=== PATIENT | female | born 1940 | race Caucasian/White ===

== ENCOUNTER → 2018-07-25 07:53 | Outpatient (CLI) | payer MEDICARE, OTHER, SELFPAY ==
--- NOTE | 2018-07-25 07:56 | BI_ITS ---
MAMMOGRAPHY - BILATERAL SCREENING REASON FOR EXAM: Female, 78 years old. Routine annual screening examination. PERTINENT HISTORY: Sister with breast cancer. TECHNIQUE: Digital bilateral breast kathy (3D mammographic acquisition) in the CC and MLO projections. 2-D mediolateral oblique (MLO) and craniocaudad (CC) views of both breasts were obtained. CAD: Full Field Digital Mammography with Computer Added Detection was performed. COMPARISON: Comparison is made with prior outside examination dated July 20, 2013. FINDINGS: Breast Composition: There are scattered areas of fibroglandular density. There are no dominant masses or suspicious calcifications. Stable bilateral benign-appearing axillary lymph nodes. No other significant abnormalities are identified. There has been no significant change since the prior study. BI/SCREENING MAMM (CAD), BILAT IMPRESSION: Stable bilateral screening mammogram. Yearly follow-up mammogram recommended. (A) ASSESSMENT CATEGORY: BIRADS Category 2: Benign. A letter regarding these results will be sent to the patient by the facility within 30 days. Approximately 10% of breast cancers are not detected by mammography. A normal mammogram should not delay biopsy of a clinically suspicious abnormality. [id number] Electronically Signed: Tyree Valenzuela MD at 8:52 EST , Service support ,
== END ==
PROVIDERS: Family Provider Family Medicine; PCP Family Medicine; Referring Provider Family Medicine; Visit Provider Family Medicine
DX: Z12.31 Encounter for screening mammogram for malignant neoplasm of breast (principal)
CPT/HCPCS: 77063; 77067

== ENCOUNTER → 2019-01-02 | Outpatient (CLI) | payer MEDICARE, OTHER, SELFPAY ==
[2017-05-04 11:01] VITALS: BMI 25.9
[2019-01-02 14:23] LABS: ALB/GLOB Ratio 1.1 RATIO (0.9-2.4); AST(SGOT) 11 U/L (15-37); Alanine Aminotransfer ALT/SGPT 15 U/L (13-56); Albumin, Serum 3.6 g/dL (3.2-5.0); Alkaline Phosphatase 69 U/L (45-117); Anion Gap 7 (5-15); BUN 14 mg/dL (7-18); BUN/Creat Ratio 19.1 RATIO (10-20); Calcium,Total 8.8 mg/dL (8.5-10.1); Chloride 103 mmol/L (98-107); Cholesterol 252 mg/dL (200); Creatinine, Serum 0.73 mg/dL (0.55-1.02); EST Glomerular Filtration Rate 81 mL/min (>60); Est Glom Filt Rate - Afr Amer 98 mL/min (>60); Globulin 3.2 g/dL (2.2-4.2); Glucose 98 mg/dL (74-106); High Density Lipoprotein 43 mg/dL; Potassium 4.4 mmol/L (3.5-5.1); Protein, Total 6.8 g/dL (6.4-8.2); Sodium Level 136 mmol/L (136-145); Thyroid Stim Hormone (TSH) 3.94 uIU/mL (0.358-3.74)
[2019-01-03 16:25] LABS: T4 Total, Thyroxin 9.7 ug/dL (4.8-13.9)
[2019-01-05 01:46] LABS: Vitamin D,25 Hydroxy 18.3 ng/mL (29.95-100.01)
== END | disposition home or self-care (01) ==
LOC: MFPLAB 11:42
PROVIDERS: Family Provider Family Medicine; PCP Family Medicine; Referring Provider Family Medicine; Visit Provider Family Medicine
DX: I10 Essential (primary) hypertension (principal); R89.9 Unspecified abnormal finding in specimens from other organs, systems and tissues
CPT/HCPCS: 36415; 80053; 82306; 82465; 83718; 84436; 84439; 84443

== ENCOUNTER 2019-12-28 08:00 | Outpatient (RCR) | payer MEDICARE, OTHER, SELFPAY ==
--- NOTE | 2019-11-09 11:52 | HP.OTEVAL_ITS ---
Patient's Visit Information RTEVER BOOTH is a 79 year old F, referred to Occupational Therapy by Dr. Jules Whatley MD, with a diagnosis of left MF mallet finger. Date of Evaluation: 11/09/19 Occupational Therapist: Amina Zelaya, JENNIFERR/Sade, CHT - Subjective This 79 year old female was seen in OT with dx of left MF mallet finger- pt in need of custom orthosis for pt to use for the next 6-8 weeks to ensure repiar. Pt states injury happened while cleaning her sink. pt states not much pain, but with big tin splint on has difficulty performing her ADLs and IADls. - Pain left MF 2 Pain Intensity Range: 0, 2 - Objective pt demo with left MF -20 lag no swelling noted - ROM PIP: left MF 0/85 DIP: left MF -20 - Strength Strength Comments: not tested at this time due to healing structure - Sensation Sensation Comments: tingling in MF due to past hx of left CTR - Quick DASH-Disab of Arm,Shoulder& Hand Quick DASH Score: 13.6350 - Goals Goal:100% adherence to protocol: Yes Comment: Mallet finger protocol Goal:ROM equal to unaffected hand: Yes Comment: initiate after 6 weeks of orthosis use Goal:Room Service Food Server/Pinch strength at least 75% of unaffected hand: Yes Comment: test at 8 weeks Goal:Full use of affected hand in daily activities including: Yes - Rehabilitation General Assessment: pt is currently one week from mallet finger injury. pt in need of custom orthosis for pt to use for the next 6-8 weeks to ensure repiar. currently pt limited with ADLs and IADls as she is unable to use her left grasp ind. PT would benefit from skilled OT services every other week for 8 weeks to ensure pt is progressing and tendon healing- Today therapist duane. custom mallet finger orthosis for left MF placing DIP in slight hyper extension- therapist ed. pt on use and care of orthosis- pt to return in 3 weeks for measurments but if orthosis would need adj. pt to return [facility]ZA for orthosis adj. to ensure use. pt demo understanding and agree to POC. Rehabilitation Potential: Good - Anticipated Interventions A/AAROM/PROM, Strengthening, Orthoses, Fine Motor Coord/Brendon, Education re Diagnosis - Visit Plan Frequency: Every Other Week Duration: 2 Months TEXT: Thank you for the opportunity to evaluate your patient. For Medicare and Medicare HMO plans, please review the plan of care and approve it. It will need to be FAXED BACK to us at [phone] for Medicare purposes. Please let me know if there are questions or concerns regarding this plan of care. Physician Signat ure: Date:
--- NOTE | 2020-02-22 09:16 | HP.OTDCSUM_ITS ---
It has been my pleasure to treat TREVER BOOTH under orders from Dr. Jules Whatley MD, for the diagnosis of left MF mallet finger for a total of 3 visit(s). Please see the following information for a summary of their discharge status. % Improvement: 80 Objective/Function: no ext. lag noted. pt demo 10* flex after AROM ex Patient Goals: Regain Mobility, Regain Strength, Use Hand/Wrist/Arm Normally Again, Be More Independent in ADLS Goal:100% adherence to protocol: Yes Goal:ROM equal to unaffected hand: Yes Goal:Traffic Division Commanding Officer/Pinch strength at least 75% of unaffected hand: Yes Goal:Full use of affected hand in daily activities including: Yes Plan: pt was seen 7 weeks from injury- therapist ed. pt on HEP of increasing her ROM . Pt was to return in 3 weeks. Pt has not scheduled apt. She was last seen on 12/28/19. pt d/c If there are questions or concerns regarding this patient's occupational therapy, please fell free to call me at [phone]. Thank you for the referral of this patient. Sincerely, Amina Zelaya, OTR/L, CHT
== END 2019-12-28 19:00 | disposition home or self-care (01) ==
LOC: OT 08:00
PROVIDERS: PCP Family Medicine; Referring Provider Orthopaedic Surgery; Visit Provider Orthopaedic Surgery
DX: M20.012 Mallet finger of left finger(s) (principal)
CPT/HCPCS: 97166; 97530; 97760

== ENCOUNTER 2020-07-05 13:17 | Outpatient (RCR) | payer MEDICARE, OTHER, SELFPAY ==
[2017-05-04 11:01] VITALS: BMI 25.9
== END 2020-07-05 23:59 ==
LOC: IMMUN 13:17
PROVIDERS: PCP Family Medicine; Visit Provider Family Medicine
DX: Z23 Encounter for immunization (principal)
CPT/HCPCS: 0011A; 0012A; 91301

== ENCOUNTER → 2020-12-16 08:52 | Outpatient (CLI) | payer MEDICARE, OTHER, SELFPAY ==
[2017-05-04 11:01] VITALS: BMI 25.9
[2020-12-16 10:50] LABS: ALB/GLOB Ratio 0.9 RATIO (0.9-2.4); AST(SGOT) 18 U/L (15-37); Alanine Aminotransfer ALT/SGPT 21 U/L (13-56); Albumin, Serum 3.7 g/dL (3.2-5.0); Alkaline Phosphatase 84 U/L (45-117); Anion Gap 7 (5-15); BUN 15 mg/dL (7-18); BUN/Creat Ratio 16.9 RATIO (10-20); Calcium,Total 8.9 mg/dL (8.5-10.1); Chloride 104 mmol/L (98-107); Cholesterol 282 mg/dL (200); Creatinine, Serum 0.89 mg/dL (0.55-1.02); EST Glomerular Filtration Rate 65 mL/min (>60); Est Glom Filt Rate - Afr Amer 78 mL/min (>60); Glucose 95 mg/dL (74-106); High Density Lipoprotein 50 mg/dL; Potassium 3.9 mmol/L (3.5-5.1); Protein, Total 7.7 g/dL (6.4-8.2); Sodium Level 137 mmol/L (136-145); Thyroid Stim Hormone (TSH) 6.26 uIU/mL (0.358-3.74); Triglycerides 129 mg/dL; Very Low Density Lipoprotein 26 mg/dL (5-40)
== END ==
PROVIDERS: PCP Family Medicine; Referring Provider Family Medicine; Visit Provider Family Medicine
DX: I10 Essential (primary) hypertension (principal)
CPT/HCPCS: 36415; 80053; 80061; 84443

== ENCOUNTER → 2020-12-24 08:26 | Outpatient (CLI) | payer MEDICARE, OTHER, SELFPAY ==
[2017-05-04 11:01] VITALS: BMI 25.9
[2020-12-24 10:24] LABS: T4 Free Direct 1.03 ng/dL (0.76-1.46)
== END ==
PROVIDERS: PCP Family Medicine; Visit Provider Family Medicine
DX: R79.89 Other specified abnormal findings of blood chemistry (principal); I10 Essential (primary) hypertension
CPT/HCPCS: 36415; 84439

== ENCOUNTER → 2021-01-24 08:58 | Outpatient (CLI) | payer MEDICARE, OTHER, SELFPAY ==
[2021-01-24 10:26] LABS: Microalbumin,Random Urine 5.2 mg/L (NO RANGE EST.)
[2021-01-24 10:38] LABS: T4 Free Direct 0.99 ng/dL (0.76-1.46); Thyroid Stim Hormone (TSH) 4.97 uIU/mL (0.358-3.74)
== END ==
PROVIDERS: PCP Family Medicine; Visit Provider Family Medicine
DX: I10 Essential (primary) hypertension (principal); R79.89 Other specified abnormal findings of blood chemistry
CPT/HCPCS: 36415; 82043; 82570; 84439; 84443

== ENCOUNTER → 2022-03-02 | Outpatient (CLI) | payer MEDICARE, OTHER, SELFPAY ==
--- NOTE | 2022-03-02 14:10 | RAD_ITS ---
EXAM: XR LEFT HUMERUS, 2 OR MORE VIEWS CLINICAL INDICATION: PAIN TECHNIQUE: Frontal and lateral views of the left humerus. This report was created using [employer] report generation technology. COMPARISON: None. FINDINGS: BONES/JOINTS: Osseous structures are mildly demineralized. Degenerative narrowing of the glenohumeral joint space. Superior subluxation of the humeral head which abuts the undersurface of the acromion indicating rotator cuff atrophy and/or tear. No acute fracture. No dislocation. No sclerotic or destructive changes observed. SOFT TISSUES: Unremarkable. No soft tissue swelling or gas. No radiopaque foreign body. OTHER: The visualized left ribs are intact. RAD/Humerus min 2 Views IMPRESSION: No acute findings in the left humerus. Degenerative narrowing of the left shoulder joint. Superior subluxation of the humeral head indicating rotator cuff atrophy and/or tear. Electronically Signed: Mervin Gonzalez MD at 5:10 EDT ,
== END | disposition home or self-care (01) ==
PROVIDERS: PCP Family Medicine; Referring Provider Family Medicine; Visit Provider Family Medicine
DX: M79.602 Pain in left arm (principal)
CPT/HCPCS: 73060

== ENCOUNTER → 2022-06-02 | Outpatient (CLI) | payer MEDICARE, OTHER, SELFPAY ==
--- NOTE | 2022-06-02 07:06 | CT_ITS ---
PROCEDURE: CT LEFT KNEE WITHOUT CONTRAST REASON FOR EXAM: Female, 82 years old. Preoperative planning for the MakoPlasty Robotic knee surgery. Knee pain. TECHNIQUE: Transaxial CT of the hip, knee and ankle were obtained. Coronal and sagittal reconstruction images of the knee were provided. Individualized dose optimization techniques were used for this CT. COMPARISON: None. FINDINGS: Standard protocol for the preoperative planning for the MakoPlasty robotic knee surgery was performed. There is moderate to marked osteoarthrosis of the knee and mild arthrosis of the. CT/Extremity Lower without Contra IMPRESSION: Preoperative MakoPlasty Robotic knee surgical CT evaluation with findings as described above. Electronically Signed: Baljit Giles, at 9:37 EST ,
[2022-06-02 13:39] LABS: Absolute Lymphocyte Count 2.48 X10^3/uL (0.83-4.51); Absolute Neutrophil Count 5.1 X10^3/uL (2.0-7.7); Basophil# 0.04 X10^3/uL; Basophil% 0.5 % (0-1); Eosinophil# 0.19 X10^3/uL; Eosinophils% 2.2 % (0-5); Hematocrit 39.1 % (37-47); Hemoglobin 12.4 g/dL (12.0-15.0); Lymphocyte # 2.48 X10^3/ul (0.83-4.51); Lymphocyte % 29.1 % (19-41); Mean Corp Hgb Conc 31.7 g/dL (32-36); Mean Corpuscular Hgb 29.4 pg (27.0-32.0); Mean Corpuscular Volume 92.7 fL (81-99); Mean Platelet Vol. 9.2 fl (6.2-12.0); Monocyte# 0.72 X10^3/uL; Monocyte% 8.5 % (0-10); NRBC Flagged by Analyzer 0 % (0-5); Neutrophil # 5.05 X10^3/uL (2.7-7.7); Neutrophil % 59.2 % (47-70); Platelet Count 306 K/mm3 (150-450); RBC Distribution Width CV 13.6 % (11.6-14.6); Red Blood Count 4.22 M/mm3 (4.2-5.4); White Blood Count 8.5 K/mm3 (4.4-11.0)
[2022-06-02 14:10] LABS: Albumin, Serum 3.7 g/dL (3.2-5.0); Anion Gap 7 (5-15); BUN 25 mg/dL (7-18); BUN/Creat Ratio 21.6 RATIO (10-20); Calcium,Total 9.1 mg/dL (8.5-10.1); Chloride 105 mmol/L (98-107); Creatinine, Serum 1.16 mg/dL (0.55-1.02); EST Glomerular Filtration Rate 47 mL/min (>60); Est Glom Filt Rate - Afr Amer 57 mL/min (>60); Glucose 99 mg/dL (74-106); Potassium 4.1 mmol/L (3.5-5.1); Sodium Level 139 mmol/L (136-145)
[2022-06-02 14:19] LABS: Hemoglobin A1c 5.5 % (3.8-5.6)
== END | disposition home or self-care (01) ==
PROVIDERS: PCP Family Medicine; Referring Provider Orthopaedic Surgery; Visit Provider Orthopaedic Surgery
DX: Z01.818 Encounter for other preprocedural examination (principal); M17.0 Bilateral primary osteoarthritis of knee; Z96.652 Presence of left artificial knee joint
CPT/HCPCS: 36415; 73700; 80048; 82040; 83036; 85025

== ENCOUNTER → 2022-06-15 | Outpatient (CLI) | payer MEDICARE, OTHER, SELFPAY ==
--- NOTE | 2022-06-15 12:12 | EKG12_ITS ---
Test Reason : PREOP Blood Pressure : / mmHG Vent. Rate : 077 BPM Atrial Rate : 077 BPM P-R Int : 212 ms QRS Dur : 072 ms QT Int : 374 ms P-R-T Axes : 063 -14 047 degrees QTc Int : 423 ms Sinus rhythm with 1st degree A-V block with Premature atrial complexes Otherwise normal ECG Confirmed by RODGER BRYANT, YANA ([id number]), rewrite editor TERRENCE AUSTIN ([id number]) on 06/15/2022 2:02:47 PM Referred By: ADRIANO Confirmed By:YANA SOARES MD
== END | disposition home or self-care (01) ==
LOC: PSN 12:11
PROVIDERS: PCP Family Medicine; Visit Provider Physician Assistant
DX: Z01.810 Encounter for preprocedural cardiovascular examination (principal)
CPT/HCPCS: 93005

== ENCOUNTER → 2022-06-17 | Outpatient (CLI) | payer MEDICARE, OTHER, SELFPAY ==
--- NOTE | 2022-06-17 08:30 | KNEE_PTH ---
PATIENT: TREVER BOOTH LOC: [facility] U#:[id number] AGE/SX: 82/F ROOM: RE06/17/[address]: Dr. Tyrone Souza DO : 1940 BED: DIS: 06/17/2022 SPEC #: [id number] RECD: 06/17/22 15:19 STATUS: NICOLAS RENurys #: [id number] KASH: 06/17/22 08:[address]: Tyrone Souza DEPT: SURGICAL PATHOLOGY RECD BY: Meg Salazar ENTERED: 06/18/22 09:59 SP TYPE: TOTAL KNEE OTHR DR: Dr. Anson Bautista MD [facility] Tissues: Knee, NOS Procedures: Decalcification bone/plaque Surgery Specimen Level IV HEADER OPERATION: Left total knee replacement with robotic assistance PRE-OP DIAGNOSIS: Primary osteoarthritis left knee TISSUE SUBMITTED: Left knee bone and tissue MICROSCOPIC DIAGNOSIS Bone and tissue, left knee, total knee replacement/resection: Pieces of bone with degenerative osteoarthritic changes. Fibroadipose tissue, fibroconnective tissue and reactive synovial tissue. Focal changes consistent with pseudogout. PENG:aleja 06/24/2022 MICROSCOPIC DESCRIPTION Slides are reviewed. GROSS DESCRIPTION Received is one container designated bone and soft tissue left knee. The specimen consists of multiple fragments of massey-yellow bone measuring in aggregate 10 x 8 x 3 cm. Also in the specimen container are multiple fragments of yellow-white soft tissue measuring in aggregate 6 x 6.5 x 2 cm. A number of bony fragments contain articular surfaces consistent with tibial plateau and femoral condyle and displaying prominent osteophyte formation, eburnation, and bone erosion. Culinary Specialist sections are submitted in two cassettes as follows: 1 - bone after decalcification, 2 - soft tissue. / PENG:aleja 06/18/2022 :[address] [facility]: [id number]
== END | disposition home or self-care (01) ==
LOC: LABSPEC 15:24
PROVIDERS: PCP Family Medicine; Referring Provider Orthopaedic Surgery; Visit Provider Orthopaedic Surgery
DX: M17.12 Unilateral primary osteoarthritis, left knee (principal)
CPT/HCPCS: 88305; 88311

== ENCOUNTER → 2022-10-27 | Outpatient (CLI) | payer MEDICARE, OTHER, SELFPAY ==
[2022-10-27 15:42] LABS: Vitamin B12 336 pg/mL (211-911)
[2022-10-27 16:02] LABS: ALB/GLOB Ratio 0.9 RATIO (0.9-2.4); AST(SGOT) 13 U/L (15-37); Alanine Aminotransfer ALT/SGPT 16 U/L (13-56); Albumin, Serum 3.4 g/dL (3.2-5.0); Alkaline Phosphatase 83 U/L (45-117); Anion Gap 6 (5-15); BUN 23 mg/dL (7-18); BUN/Creat Ratio 29.7 RATIO (10-20); Calcium,Total 9.1 mg/dL (8.5-10.1); Chloride 106 mmol/L (98-107); Creatinine, Serum 0.77 mg/dL (0.55-1.02); EST Glomerular Filtration Rate 76 mL/min (>60); Est Glom Filt Rate - Afr Amer 91 mL/min (>60); Globulin 3.8 g/dL (2.2-4.2); Glucose 97 mg/dL (74-106); Potassium 4.3 mmol/L (3.5-5.1); Protein, Total 7.2 g/dL (6.4-8.2); Sodium Level 137 mmol/L (136-145); Thyroid Stim Hormone (TSH) 3.48 uIU/mL (0.358-3.74)
== END | disposition home or self-care (01) ==
LOC: MFPLAB 12:24
PROVIDERS: PCP Family Medicine; Visit Provider Family Medicine
DX: R79.89 Other specified abnormal findings of blood chemistry (principal); I10 Essential (primary) hypertension; R53.83 Other fatigue
CPT/HCPCS: 36415; 80053; 82607; 82746; 84443

== ENCOUNTER → 2023-02-16 | Outpatient (CLI) | payer MEDICARE, OTHER, SELFPAY ==
--- NOTE | 2023-02-16 08:02 | BI_ITS ---
MAMMOGRAPHY - BILATERAL SCREENING REASON FOR EXAM: Female, 82 years old. Routine annual screening examination. PERTINENT HISTORY: Sister with breast cancer. TECHNIQUE: Digital bilateral breast rodriguez (3D mammographic acquisition) in the CC and MLO projections. 2-D mediolateral oblique (MLO) and craniocaudad (CC) views of both breasts were obtained. CAD: Full Field Digital Mammography with Computer Added Detection was performed. COMPARISON: Comparison is made with prior study dated July 25, 2018. FINDINGS: Breast Composition: There are scattered areas of fibroglandular density. Focal area of architectural distortion is seen in the upper deep slightly lateral aspect of the left breast. The patient will be recalled for additional views including compression spot views and 90 degree lateral view. No other significant abnormalities are identified. BI/SCRN MAMM (CAD)W/RODRIGUEZ BILAT IMPRESSION: Focal area of architectural distortion is seen in the upper deep slightly lateral aspect of the left breast as described. The patient will be recalled for additional views including 90 degree lateral and compression spot views. ASSESSMENT CATEGORY: BIRADS Category 0: Incomplete. Need additional imaging evaluation. A letter regarding these results will be sent to the patient by the facility within 30 days. Approximately 10% of breast cancers are not detected by mammography. A normal mammogram should not delay biopsy of a clinically suspicious abnormality. [id number] Electronically Signed: Tyree Valenzuela MD at 8:54 EDT ,
== END | disposition home or self-care (01) ==
LOC: OPBI 08:00
PROVIDERS: PCP Family Medicine; Referring Provider Family Medicine; Visit Provider Family Medicine
DX: Z12.31 Encounter for screening mammogram for malignant neoplasm of breast (principal)
CPT/HCPCS: 77063; 77067

== ENCOUNTER → 2023-02-17 | Outpatient (CLI) | payer MEDICARE, OTHER, SELFPAY ==
--- NOTE | 2023-02-17 09:05 | US_ITS ---
STUDY: ULTRASOUND BREAST - LEFT REASON FOR EXAM: Female, 82 years old. Abnormal mammogram. TECHNIQUE: Axial and longitudinal images of the LEFT breast were performed with a high resolution ultrasound transducer. # OF IMAGES: 39 COMPARISON: Comparison is made with prior mammogram dated February 16, 2023 and February 17, 2023. FINDINGS: LEFT Breast: At the 12:00 position of the breast at 3 cm from nipple, there is a 9 mm x 9 mm x 4 mm ill-defined subtle architectural distortion corresponded to the mammographic findings. Biopsy recommended. US/Breast Limited Unilateral IMPRESSION: Subtle 9 mm x 9 mm x 4 mm ill-defined architectural distortion at the 12:00 position of the breast at 3 cm from the nipple. Biopsy recommended. ASSESSMENT CATEGORY: BIRADS Category 4: Suspicious - Biopsy Should Be Considered. A letter regarding these results will be sent to the patient by the facility within 30 days. Electronically Signed: Tyree Valenzuela MD at 10:43 EDT ,
--- NOTE | 2023-02-17 09:05 | BI_ITS ---
MAMMOGRAPHY - UNILATERAL DIAGNOSTIC: LEFT BREAST REASON FOR EXAM: Female, 82 years old. Abnormal screening mammogram. PERTINENT HISTORY: Sister with breast cancer. TECHNIQUE: Compression spot views of the left breast in the mediolateral oblique and craniocaudad projections as well as 90 degree lateral view were obtained. CAD: Full Field Digital Mammography with Computer Added Detection was performed. COMPARISON: Comparison is made with prior study February 16, 2023. FINDINGS: Breast Composition: There are scattered areas of fibroglandular density. Persistent focal architectural distortion in the upper lateral aspect of the left breast. Correlation with ultrasound is recommended. No other significant abnormalities are identified. BI/DIAG MAMM W/CAD, UNILAT IMPRESSION: Persistent focal architectural distortion in the upper outer aspect of the left breast as described. Correlation with ultrasound is recommended. ASSESSMENT CATEGORY: BIRADS Category 0: Incomplete. Need additional imaging evaluation. A letter regarding these results will be sent to the patient by the facility within 30 days. Approximately 10% of breast cancers are not detected by mammography. A normal mammogram should not delay biopsy of a clinically suspicious abnormality. Electronically Signed: Tyree Valenzuela MD at 10:14 EDT ,
== END | disposition home or self-care (01) ==
LOC: OPBI 09:04
PROVIDERS: PCP Family Medicine; Referring Provider Family Medicine; Visit Provider Family Medicine
DX: R92.8 Other abnormal and inconclusive findings on diagnostic imaging of breast (principal)
CPT/HCPCS: 76642; 77065

== ENCOUNTER → 2023-03-11 | Outpatient (CLI) | payer MEDICARE, OTHER, SELFPAY ==
--- NOTE | 2023-03-11 09:40 | HP.PCM_ITS ---
History and Physical Date of Admission: 03/11/23 Visit Reasons: LEFT BREAST BIRADS 4 Chief Complaint: left breast nodule Substance Abuse Services Director Required: No Is patient in pain?: No Allergies Sulfa (Sulfonamide Antibiotics) Allergy (Verified 03/08/23 12:11) Rashmorphine Adverse Reaction (Verified 03/08/23 12:11) MydjdBenjklf-SQR-GxY Reductase Inhibitor [Lwwsprx-Liu-Era Reductase Inhibitor] Adverse Reaction (Verified 03/08/23 12:11) Pain in joints Medications lisinopril 10 mg tablet 20 mg PO DAILY 02/29/16 [History Confirmed 03/08/23] cholecalciferol (vitamin D3) 25 mcg (1,000 unit) tablet (Vitamin D3) 2,000 unit PO DAILY 05/07/16 [History Confirmed 03/08/23] orphenadrine citrate 100 mg tablet,extended release 100 mg PO BID PRN Muscle Spasm #14 TABLETS 05/04/17 [Rx Confirmed 03/08/23] metoprolol tartrate 50 mg tablet 50 mg PO BID #180 tabs 06/21/17 [Rx Confirmed 03/08/23] [facility] Medical History (Updated 03/08/23 @ 12:[address] Tima Oviedo MD) Abnormal ECG Abnormal mammogram of left breast Acute electrocardiogram changes HLD (hyperlipidemia) Murmur, cardiac Palpitations Tachycardia Uncontrolled hypertension Surgical History (Updated 03/08/23 @ 12:10 by Steffi Mancuso) S/P carpal tunnel release S/P cataract extraction S/P left knee surgery Family History (Updated 03/08/23 @ 12:11 by Steffi Mancuso) Sister Breast cancerMother Heart disease Social History (Updated 03/08/23 @ 12:11 by Steffi Mancuso) Smoking Status: Never smoker alcohol intake: never HPI HPI HPI: 82-year-old female is being referred by Dr. Anson Bautista for surgical consultation regarding abnormal mammographic and breast ultrasound imaging. A written copy of my surgical consult recommendations will return to him. As noted below on February 16, 2023 the patient had bilateral screening mammography and then on February 17, 2023 she had diagnostic left breast mammogram and ultrasonography. I have personally reviewed these images. On mammogram there is felt to be a focal architectural distortion in the upper outer aspect of the left breast however this area is rather diffuse. Ultrasound suggests that a much smaller 9 x 9 x 4 mm ill-defined area. This is extraordinarily vague and does not seem to correlate well with the diffuse area on mammogram to my review. 82-year-old female. G5, . Menarche at age 14. First child born when she was 18. She did not breast-feed. No history of any previous breast biopsies. She was briefly on estrogen replacement therapy remotely but that was only for approximately 1 year. Family history is notable for a sister who had breast cancer at approximately age 77 or 78 but she had been on chronic OCPs. The patient denies any nipple discharge. She has had chronic lifelong breast tenderness. She herself cannot detect any focal changes in her own self breast exam February 16, 2023 MAMMOGRAPHY - BILATERAL SCREENING REASON FOR EXAM: Female, 82 years old. Routine annual screening examination. PERTINENT HISTORY: Sister with breast cancer. TECHNIQUE: Digital bilateral breast rodriguez (3D mammographic acquisition) in the CC and MLO projections. 2-D mediolateral oblique (MLO) and craniocaudad (CC) views of both breasts were obtained. CAD: Full Field Digital Mammography with Computer Added Detection was performed. COMPARISON: Comparison is made with prior study dated July 25, 2018. FINDINGS: Breast Composition: There are scattered areas of fibroglandular density. Focal area of architectural distortion is seen in the upper deep slightly lateral aspect of the left breast. The patient will be recalled for additional views including compression spot views and 90 degree lateral view. No other significant abnormalities are identified. BI/SCRN MAMM (CAD)W/RODRIGUEZ BILAT IMPRESSION: Focal area of architectural distortion is seen in the upper deep slightly lateral aspect of the left breast as described. The patient will be recalled for additional views including 90 degree lateral and compression spot views. ASSESSMENT CATEGORY: BIRADS Category 0: Incomplete. Need additional imaging evaluation. A letter regarding these results will be sent to the patient by the facility within 30 days. Approximately 10% of breast cancers are not detected by mammography. A normal mammogram should not delay biopsy of a clinically suspicious abnormality. [id number] Electronically Signed: Tyree Valenzuela MD at 8:54 EDT , February 17, 2023 MAMMOGRAPHY - UNILATERAL DIAGNOSTIC: LEFT BREAST REASON FOR EXAM: Female, 82 years old. Abnormal screening mammogram. PERTINENT HISTORY: Sister with breast cancer. TECHNIQUE: Compression spot views of the left breast in the mediolateral oblique and craniocaudad projections as well as 90 degree lateral view were obtained. CAD: Full Field Digital Mammography with Computer Added Detection was performed. COMPARISON: Comparison is made with prior study February 16, 2023. FINDINGS: Breast Composition: There are scattered areas of fibroglandular density. Persistent focal architectural distortion in the upper lateral aspect of the left breast. Correlation with ultrasound is recommended. No other significant abnormalities are identified. BI/DIAG MAMM W/CAD, UNILAT IMPRESSION: Persistent focal architectural distortion in the upper outer aspect of the left breast as described. Correlation with ultrasound is recommended. ASSESSMENT CATEGORY: BIRADS Category 0: Incomplete. Need additional imaging evaluation. A letter regarding these results will be sent to the patient by the facility within 30 days. Approximately 10% of breast cancers are not detected by mammography. A normal mammogram should not delay biopsy of a clinically suspicious abnormality. Electronically Signed: Tyree Valenzuela MD at 10:14 EDT , February 17, 2023 STUDY: ULTRASOUND BREAST - LEFT REASON FOR EXAM: Female, 82 years old. Abnormal mammogram. TECHNIQUE: Axial and longitudinal images of the LEFT breast were performed with a high resolution ultrasound transducer. # OF IMAGES: 39 COMPARISON: Comparison is made with prior mammogram dated February 16, 2023 and February 17, 2023. FINDINGS: LEFT Breast: At the 12:00 position of the breast at 3 cm from nipple, there is a 9 mm x 9 mm x 4 mm ill-defined subtle architectural distortion corresponded to the mammographic findings. Biopsy recommended. US/Breast Limited Unilateral IMPRESSION: Subtle 9 mm x 9 mm x 4 mm ill-defined architectural distortion at the 12:00 position of the breast at 3 cm from the nipple. Biopsy recommended. ASSESSMENT CATEGORY: BIRADS Category 4: Suspicious - Biopsy Should Be Considered. A letter regarding these results will be sent to the patient by the facility within 30 days. Electronically Signed: Tyree Valenzuela MD at 10:43 EDT , ROS General General: Yes fatigue; No weight change, appetite, colon cancer, breast cancer or weakness HEENT HEENT: No difficulty swallowing, eye injury, eye surgery, swollen glands or hoarseness Endo Endocrine: No thyroid disease, diabetes mellitus, thyroid cancer, Hair loss, heat intolerance or cold intolerance Skin Skin: No rash or changing moles Breast Breast: No left breast lump, right breast lump, nipple discharge, breast pain, abnormal mammogram, abnormal US or breast enlargement Musc Musculoskeletal: Yes arthritis; No back problems, rheumatoid arthritis, gout or joint pain Cardio Cardiovascular: Yes high blood pressure; No murmur, pacemaker, heart disease, atrial fibrillation, heart attack, heart stent, palpitations, shortness of breat with exertion or chest pain Psych Psychiatric: Yes anxiety; No depression or hearing voices Resp Respiratory: No shortness of breath, No sleep apnea, No cough, No COPD, No asthma, No emphysema and No wheezing Gastro Gastrointestinal: No abdominal pain, No nausea or vomiting, No diarrhea, Yes constipation, No blood in stool, No acid reflux, No hemorrhoids, No ulcers, No gallbladder problem and No black,tarry stools Vinicio Hematologic: No blood thinners, No blood disorders, No bleeding, No anemia and No blood clots Neuro Neurologic: No system reviewed and no additional complaints, except as documente d, No as per HPI, No abnormal gait, No abnormal hearing, No abnormal movements, No abnormal speech, No behavioral changes, No burning sensations, No confusion, No convulsions, No disequilibrium, No dizziness, No localized weakness, No frequent falls, No headache(s), No lack of coordination, No loss of vision, No memory loss, No numbness, No other visual disturbances, No radicular pain, No restless legs, No sensory deficit, No syncope, No tingling, No tremor(s), No weakness and No other Exam Const General: cooperative, healthy appearing, comfortable and no acute distress Nutritional Appearance: average body habitus Orientation: alert, awake and oriented x3 HENMT Head: normal to inspection Eyes General: appearance normal, both eyes and all related structures Neck Neck: normal visual inspection Chest Other: Right breast: No focal mass. No nipple discharge. No axillary or clavicular adenopathy, mild diffuse tenderness to even light palpation Left breast: No focal mass. No nipple discharge. No axillary or clavicular adenopathy, mild diffuse tenderness to light palpation Resp Effort & Inspection: normal respiratory effort Auscultation: clear to auscultation bilaterally Assessment and Plan Assessment and Plan (1) Abnormal mammogram of left breast: Status: Acute Plan: As noted above I do not believe that the streaky area of abnormality on mammogram correlates with the very nondescript at 9 mm area felt to be possibly identified on ultrasound. I believe that the ultrasound finding is quite vague at best. I propose for her stereotactic needle core biopsy left breast upper outer quadrant. I described the technique, benefit, risk, alternatives. She has had an opportunity to ask and have questions answered. We will proceed as noted. I appreciate the opportunity of assisting with her surgical care. Copy: Dr. Anson Oviedo M.D., F.A.C.S. I have examined the patient and the H&P has been reviewed. There are no clinical changes since date of exam. Tima Oviedo M.D., F.A.C.S.
--- NOTE | 2023-03-11 10:26 | OP.PCM_ITS ---
Report of Operation Date of Procedure: 03/11/23 Pre-Operative Diagnosis: Abnormal left mammogram Post-Operative Diagnosis: Abnormal left mammogram with streaky density upper slightly outer left breast Surgery/Procedure Performed:: Stereotactic needle core left breast biopsy Description of Surgical Findings:: Timeout informed consent was obtained. 82-year-old female was taken to the stereotactic unit. She was placed prone on the table in a cc view. The transversely positioned and streaky type irregularity was identified. Stereotactic images were obtained. Ward target on host/hostess restaurant was used to replace image 2. The left breast was sterilely prepped and draped. 1% lidocaine was used as local anesthetic. 15 cc was used. A small stab incision was created 8 gauge mammotome needle was advanced to depth core biopsies were obtained a total of 10. There was some oozing with that sampling. A mini marking clip was left at 12 o'clock position. She was released from the device pressure was held for hemostasis which appeared to be intact. Steri-Strip Telfa OpSite dressing applied. The specimens were immediately transferred to formalin for analysis. She was tender at the initiation of the procedure and did require reassuring th roughout the procedure however I felt she did well. Specimens cores x10. Drains none. Blood loss 10 cc. She will be notified of final pathology as it becomes available. Tima Oviedo M.D., F.A.C.S. Surgeon: Tima Oviedo Type of Anesthesia: Local
--- NOTE | 2023-03-11 10:30 | BRBX_PTH ---
PATIENT: TREVER BOOTH LOC: [facility] U#:[id number] AGE/SX: 82/F ROOM: RE03/11/[address]: Dr. Tima Oviedo MD : 1940 BED: DIS: 03/11/2023 SPEC #: [id number] RECD: 03/11/23 11:15 STATUS: NICOLAS RENurys #: [id number] KASH: 03/11/23 10:[address]: Tima Oviedo DEPT: SURGICAL PATHOLOGY RECD BY: Breanna Hensley ENTERED: 03/11/23 15:08 SP TYPE: BREAST BX OTHR DR: Dr. Anson Bautista MD Tissues: Right breast, NOS Procedures: Surgery Specimen Level IV HEADER OPERATION: Left stereotactic breast biopsy PRE-OP DIAGNOSIS: Left upper outer quadrant architectural distortion TISSUE SUBMITTED: Left breast core tissue ISCHEMIC TIME: 1 minute FIXATION TIME: 9 hours MICROSCOPIC DIAGNOSIS Left breast, stereotactic core biopsy: Mature adipose tissue and blood. No evidence of malignancy. See comment. AM:aleja 03/12/2023 COMMENT Ductal epithelium is not represented in the biopsy. Clinical correlation is suggested. MICROSCOPIC DESCRIPTION Slides are reviewed. GROSS DESCRIPTION Received in fixative is one container labeled with the patient's name and designated left breast. The specimen consists of multiple elongated fragments of massey-yellow fibroadipose tissue mixed with blood clot that in aggregate measure 7.5 x 3.0 x 0.3 cm. The entire specimen is submitted in three cassettes. / SJ:aleja 03/11/2023 TC:5 CPT: 95211
== END | disposition home or self-care (01) ==
LOC: BIRAD 09:17
PROVIDERS: PCP Family Medicine; Referring Provider Surgery; Visit Provider Surgery
DX: R92.8 Other abnormal and inconclusive findings on diagnostic imaging of breast (principal); I10 Essential (primary) hypertension; Z79.899 Other long term (current) drug therapy
CPT/HCPCS: 19081; 88305; J7050

== ENCOUNTER → 2023-03-25 | Outpatient (CLI) | payer MEDICARE, OTHER, SELFPAY ==
--- NOTE | 2023-03-25 | IMM_PTH ---
PATIENT: TREVER BOOTH LOC: [facility] U#:[id number] AGE/SX: 82/F ROOM: RE03/25/[address]: Dr. Tima Oviedo MD : 1940 BED: DIS: 03/25/2023 SPEC #: [id number] RECD: 03/26/23 14:40 STATUS: NICOLAS REQ #: [id number] KASH: 03/25/23 00:[address]: Tima Oviedo DEPT: IMMUNOHISTOCHEMISTRY RECD BY: Breanna Hensley ENTERED: 03/26/23 14:41 SP TYPE: IMMUNO OTHR DR: Dr. Anson Bautista MD Tissues: Left breast, NOS Procedures: CALPONIN-1 (add) CK5-6 (add) CK8 (add) E-CAD (add) HER2 SANJIV (add) KI-67 (add) P53 (add) MI (add) IN SITU HYBRIDIZATION P40 (add) ER (initial) PHYSICIAN & [address] [address] SPECIMEN INFORMATION: Tissue Source: Left breast Clinical Info: Left upper outer quadrant breast distortion Specimen Number: [id number] #2 CPT code: 62560, 56875 x6, 73403 x3, 17965 x2 METHODOLOGY: Deparaffinized sections of prefer/formalin-fixed tissue or PAP/DQ stained slides are incubated with monoclonal/polyclonal antibodies/oligonucleotide probes. Localization is made via biotin free immunoperoxidase method. Appropriate controls are performed and reacted as expected. Results on target cell population are indicated in the following table: RESULTS: ANTIBODY / CLONE RESULT Block 2 E-Cad (ECH-6) negative CK8 (35ccmiV70) positive Calponin-1 (GA709W) negative CK5-6 (D5 & 1684) negative P40 (BC28) negative P53 (DO-7) negative (null pattern) Ki-67 (30-9) positive, low (~2%) MORPHOMETRIC ANALYSIS ER (clone 6F11) >95%, strong intensity MI (clone 16/1E2) >95%, moderate intensity Her-2Neu (clone CB11) 1-2+ The prognostic test for HER2 is performed on formalin-fixed paraffin embedded tissue. A 3+ (positive) staining pattern is defined as intense, homogeneous, complete, circumferential membranous staining in >10% of contiguous tumor cells. A similar weak (2+) staining pattern is interpreted as equivocal. SERVANDO follow-up testing is recommended for all equivocal cases. Positivity/negativity for ER/MI is reported if > or < 1% of the tumor cells are immuno- reactive, respectively. The ASCO/CAP criteria is used for scoring. Reference: Journal of Clinical Oncology, 2013; 31:7519-9851 & 2010; 16:1234-0135. Ischemic time: Less than one hour. Duration of fixation: 8.5 Hrs; Sample Adequate: Yes. These assays have not been validated on decalcified tissues. Results should be interpreted with caution given the likelihood of false negativity on decalcified specimens or fixation greater than 72 hours. Alternative testing methods (FISH/dualISH for Her2; gene expression for ER) are recommended, if applicable. Please notify the laboratory if additional testing is required. These tests were developed and their performance characteristics determined by [facility]. They may not have been cleared or approved by the U.S. Food and Drug Administration. The FDA has determined that such clearance or approval is not necessary. The above immunohistochemical/dualISH markers are ordered and reviewed by the Pathologist. INTERPRETATION: Left breast, stereotactic core biopsy: Invasive lobular carcinoma. Positive for estrogen receptors (favorable prognostic indicator). Positive for progesterone receptors (favorable prognostic indicator). Equivocal for overexpression of GCF8bkj. SJ:rg 03/29/2023 ADDENDUM ADDENDUM ADDENDUM ADDENDUM ADDENDUM ADDENDUM ADDENDUM ADDENDUM ADDENDUM ADDENDUM ADDENDUM ADDENDUM ADDENDUM ADDENDUM ADDENDUM ADDENDUM ADDENDUM ADDENDUM ADDENDUM ADDENDUM ADDENDUM ADDENDUM 03/30/2023 11:54 ADDENDUM 03/30/2023 11:54 ADDENDUM 03/30/2023 11:54 ADDENDUM 03/30/2023 11:54 ADDENDUM 03/30/2023 11:54 IN SITU HYBRIDIZATION (SERVANDO) FOR HER2 Interpretation: Negative / Not Amplified HER2 : CEP-17 Ratio: 0.88 Average HER2 Signal: 1.55 Average CEP-17 Signal: 1.75 Number of Tumor Cells Scanned: 50 Interpretative Information: The INFORM HER2 Dual SERVANDO DNA Probe Cocktail assay is performed on formalin-fixed paraffin embedded tissue and determines HER2 gene status by detecting HER2 copies via silver in situ hybridization (SISH) and Chromosome 17 copies via chromogenic red in situ hybridization on tumor cells. A minimum of 20 cells representing > 10% of contiguous and homogeneous invasive tumor cells were analyzed. HER2 gene status is classified as Non-amplified (HER2/Chr17 ratio < 2.0) or Amplified (HER2/Chr17 ratio greater than or equal to 2.0). If the resulting HER2/Chr17 ratio falls within 1.8 - 2.2 (Borderline), retesting by FISH is recommended. Reference: Char AC, Herberth PATEL, Bishnu DG, et al: Recommendations for Human Epidermal Growth Factor Receptor 2 Testing in Breast Cancer: [place] [employer] Clinical On[employer] / College of [place] [employer] Clinical Practice Guideline Update. J Clin Oncol 31:6161-3374, 2013. SJ:aleja 03/30/2023
--- NOTE | 2023-03-25 10:34 | PCM.HP.BLA ---
History and Physical Date of Admission: 03/25/23 On March 11, 2023 I performed a stereotactic needle core breast biopsy of the left breast. Final pathology was benign but did not demonstrate breast tissue. After discussion with the patient she returns today for repeat attempt in hopes of obtaining breast tissue. My previous notes reflect the following Visit Reasons: LEFT BREAST BIRADS 4 Chief Complaint: left breast nodule Arranging Funeral Director Required: No Is patient in pain?: No Allergies Sulfa (Sulfonamide Antibiotics) Allergy (Verified 03/08/23 12:11) Rashmorphine Adverse Reaction (Verified 03/08/23 12:11) CtictHvunfqx-QIK-LkY Reductase Inhibitor [Fntozrr-Dzx-Tpl Reductase Inhibitor] Adverse Reaction (Verified 03/08/23 12:11) Pain in joints Medications lisinopril 10 mg tablet 20 mg PO DAILY 02/29/16 [History Confirmed 03/08/23] cholecalciferol (vitamin D3) 25 mcg (1,000 unit) tablet (Vitamin D3) 2,000 unit PO DAILY 05/07/16 [History Confirmed 03/08/23] orphenadrine citrate 100 mg tablet,extended release 100 mg PO BID PRN Muscle Spasm #14 TABLETS 05/04/17 [Rx Confirmed 03/08/23] metoprolol tartrate 50 mg tablet 50 mg PO BID #180 tabs 06/21/17 [Rx Confirmed 03/08/23] [facility] Medical History (Updated 03/08/23 @ 12:[address] Tima Oviedo MD) Abnormal ECG Abnormal mammogram of left breast Acute electrocardiogram changes HLD (hyperlipidemia) Murmur, cardiac Palpitations Tachycardia Uncontrolled hypertension Surgical History (Updated 03/08/23 @ 12:10 by Steffi Mancuso) S/P carpal tunnel release S/P cataract extraction S/P left knee surgery Family History (Updated 03/08/23 @ 12:11 by Steffi Mancuso) Sister Breast cancerMother Heart disease Social History (Updated 03/08/23 @ 12:11 by Steffi Mancuso) Smoking Status: Never smoker alcohol intake: never HPI HPI HPI: 82-year-old female is being referred by Dr. Anson Bautista for surgical consultation regarding abnormal mammographic and breast ultrasound imaging. A written copy of my surgical consult recommendations will return to him. As noted below on February 16, 2023 the patient had bilateral screening mammography and then on February 17, 2023 she had diagnostic left breast mammogram and ultrasonography. I have personally reviewed these images. On mammogram there is felt to be a focal architectural distortion in the upper outer aspect of the left breast however this area is rather diffuse. Ultrasound suggests that a much smaller 9 x 9 x 4 mm ill-defined area. This is extraordinarily vague and does not seem to correlate well with the diffuse area on mammogram to my review. 82-year-old female. G5, . Menarche at age 14. First child born when she was 18. She did not breast-feed. No history of any previous breast biopsies. She was briefly on estrogen replacement therapy remotely but that was only for approximately 1 year. Family history is notable for a sister who had breast cancer at approximately age 77 or 78 but she had been on chronic OCPs. The patient denies any nipple discharge. She has had chronic lifelong breast tenderness. She herself cannot detect any focal changes in her own self breast exam February 16, 2023 MAMMOGRAPHY - BILATERAL SCREENING REASON FOR EXAM: Female, 82 years old. Routine annual screening examination. PERTINENT HISTORY: Sister with breast cancer. TECHNIQUE: Digital bilateral breast rodrigeuz (3D mammographic acquisition) in the CC and MLO projections. 2-D mediolateral oblique (MLO) and craniocaudad (CC) views of both breasts were obtained. CAD: Full Field Digital Mammography with Computer Added Detection was performed. COMPARISON: Comparison is made with prior study dated July 25, 2018. FINDINGS: Breast Composition: There are scattered areas of fibroglandular density. Focal area of architectural distortion is seen in the upper deep slightly lateral aspect of the left breast. The patient will be recalled for additional views including compression spot views and 90 degree lateral view. No other significant abnormalities are identified. BI/SCRN MAMM (CAD)W/RODRIGUEZ BILAT IMPRESSION: Focal area of architectural distortion is seen in the upper deep slightly lateral aspect of the left breast as described. The patient will be recalled for additional views including 90 degree lateral and compression spot views. ASSESSMENT CATEGORY: BIRADS Category 0: Incomplete. Need additional imaging evaluation. A letter regarding these results will be sent to the patient by the facility within 30 days. Approximately 10% of breast cancers are not detected by mammography. A normal mammogram should not delay biopsy of a clinically suspicious abnormality. [id number] Electronically Signed: Tyree Valenzuela MD at 8:54 EDT , February 17, 2023 MAMMOGRAPHY - UNILATERAL DIAGNOSTIC: LEFT BREAST REASON FOR EXAM: Female, 82 years old. Abnormal screening mammogram. PERTINENT HISTORY: Sister with breast cancer. TECHNIQUE: Compression spot views of the left breast in the mediolateral oblique and craniocaudad projections as well as 90 degree lateral view were obtained. CAD: Full Field Digital Mammography with Computer Added Detection was performed. COMPARISON: Comparison is made with prior study February 16, 2023. FINDINGS: Breast Composition: There are scattered areas of fibroglandular density. Persistent focal architectural distortion in the upper lateral aspect of the left breast. Correlation with ultrasound is recommended. No other significant abnormalities are identified. BI/DIAG MAMM W/CAD, UNILAT IMPRESSION: Persistent focal architectural distortion in the upper outer aspect of the left breast as described. Correlation with ultrasound is recommended. ASSESSMENT CATEGORY: BIRADS Category 0: Incomplete. Need additional imaging evaluation. A letter regarding these results will be sent to the patient by the facility within 30 days. Approximately 10% of breast cancers are not detected by mammography. A normal mammogram should not delay biopsy of a clinically suspicious abnormality. Electronically Signed: Tyree Valenzuela MD at 10:14 EDT , February 17, 2023 STUDY: ULTRASOUND BREAST - LEFT REASON FOR EXAM: Female, 82 years old. Abnormal mammogram. TECHNIQUE: Axial and longitudinal images of the LEFT breast were performed with a high resolution ultrasound transducer. # OF IMAGES: 39 COMPARISON: Comparison is made with prior mammogram dated February 16, 2023 and February 17, 2023. FINDINGS: LEFT Breast: At the 12:00 position of the breast at 3 cm from nipple, there is a 9 mm x 9 mm x 4 mm ill-defined subtle architectural distortion corresponded to the mammographic findings. Biopsy recommended. US/Breast Limited Unilateral IMPRESSION: Subtle 9 mm x 9 mm x 4 mm ill-defined architectural distortion at the 12:00 position of the breast at 3 cm from the nipple. Biopsy recommended. ASSESSMENT CATEGORY: BIRADS Category 4: Suspicious - Biopsy Should Be Considered. A letter regarding these results will be sent to the patient by the facility within 30 days. Electronically Signed: Tyree Valenzuela MD at 10:43 EDT , ROS General General: Yes fatigue; No weight change, appetite, colon cancer, breast cancer or weakness HEENT HEENT: No difficulty swallowing, eye injury, eye surgery, swollen glands or hoarseness Endo Endocrine: No thyroid disease, diabetes mellitus, thyroid cancer, Hair loss, heat intolerance or cold intolerance Skin Skin: No rash or changing moles Breast Breast: No left breast lump, right breast lump, nipple discharge, breast pain, abnormal mammogram, abnormal US or breast enlargement Musc Musculoskeletal: Yes arthritis; No back problems, rheumatoid arthritis, gout or joint pain Cardio Cardiovascular: Yes high blood pressure; No murmur, pacemaker, heart disease, atrial fibrillation, heart attack, heart stent, palpitations, shortness of breat with exertion or chest pain Psych Psychiatric: Yes anxiety; No depression or hearing voices Resp Respiratory: No shortness of breath, No sleep apnea, No cough, No COPD, No asthma, No emphysema and No wheezing Gastro Gastrointestinal: No abdominal pain, No nausea or vomiting, No diarrhea, Yes constipation, No blood in stool, No acid reflux, No hemorrhoids, No ulcers, No gallbladder problem and No black,tarry stools Vinicio Hematologic: No blood thinners, No blood disorders, No bleeding, No anemia and No blood clots Neuro Neurologic: No system reviewed and no additional complaints, except as documented, No as per HPI, No abnormal gait, No abnormal hearing, No abnormal movements, No abnormal speech, No behavioral changes, No burning sensations, No confusion, No convulsions, No disequilibrium, No dizziness, No localized weakness, No frequent falls, No headache(s), No lack of coordination, No loss of vision, No memory loss, No numbness, No other visual disturbances, No radicular pain, No restless legs, No sensory deficit, No syncope, No tingling, No tremor(s), No weakness and No other Exam Const General: cooperative, healthy appearing, comfortable and no acute distress Nutritional Appearance: average body habitus Orientation: alert, awake and oriented x3 HENMT Head: normal to inspection Eyes General: appearance normal, both eyes and all related structures Neck Neck: normal visual inspection Chest Other: Right breast: No focal mass. No nipple discharge. No axillary or clavicular adenopathy, mild diffuse tenderness to even light palpation Left breast: No focal mass. No nipple discharge. No axillary or clavicular adenopathy, mild diffuse tenderness to light palpation Resp Effort & Inspection: normal respiratory effort Auscultation: clear to auscultation bilaterally Assessment and Plan Assessment and Plan (1) Abnormal mammogram of left breast: Status: Acute Plan: As noted above I do not believe that the streaky area of abnormality on mammogram correlates with the very nondescript at 9 mm area felt to be possibly identified on ultrasound. I believe that the ultrasound finding is quite vague at best. I propose for her stereotactic needle core biopsy left breast upper outer quadrant. I described the technique, benefit, risk, alternatives. She has had an opportunity to ask and have questions answered. We will proceed as noted. I appreciate the opportunity of assisting with her surgical care. Copy: Dr. Anson Oviedo M.D., F.A.C.S As noted above patient presents for planned repeat attempt at a stereotactic needle core biopsy left breast as previous sampling appeared technically to go smoothly but did not reveal breast tissue and the final pathology. Tima Oviedo M.D., F.A.C.S.
--- NOTE | 2023-03-25 11:00 | BRBX_PTH ---
PATIENT: TREVER BOOTH LOC: [facility] U#:[id number] AGE/SX: 82/F ROOM: RE03/25/[address]: Dr. Tima Oviedo MD : 1940 BED: DIS: 03/25/2023 SPEC #: [id number] RECD: 03/25/23 11:34 STATUS: NICOLAS RENurys #: [id number] KASH: 03/25/23 11:[address]: Tima Oviedo DEPT: SURGICAL PATHOLOGY RECD BY: Meg Salazar ENTERED: 03/25/23 11:52 SP TYPE: BREAST BX OTHR DR: Dr. Anson Bautista MD Tissues: Left breast, NOS Procedures: Surgery Specimen Level IV HEADER OPERATION: Left stereotactic breast biopsy PRE-OP DIAGNOSIS: Left upper outer quadrant breast distortion TISSUE SUBMITTED: Left breast core tissue MICROSCOPIC DIAGNOSIS Left breast, stereotactic core biopsy: Invasive lobular carcinoma, nuclear grade 1 (1.4 cm in greatest length). See comment. SJ:aleja 03/26/2023 COMMENT Immunohistochemistry ([id number]) supports the above diagnosis. ER/WY/Jfa4ikb studies are being performed on sections of tumor and the results from this study will be reported separately ([id number]). Case has been reviewed in consultation with Dr. Hou who concurs with the above diagnosis. IDC:AM MICROSCOPIC DESCRIPTION Slides are reviewed. GROSS DESCRIPTION Received is one container labeled with the patient's name and not further designated. The specimen consists of multiple irregular and elongated fragments of yellow-massey soft tissue that in aggregate measure 4.0 x 3.0 x 0.2 cm. The specimen is totally submitted in two cassettes. / AM:aleja 03/25/2023 TC:0 Ischemic Time: 1 minute Fixation Time: 8.5 hours CPT: 70517
--- NOTE | 2023-03-25 11:21 | PCM.OPRPT ---
Report of Operation Date of Procedure: 03/25/23 Pre-Operative Diagnosis: Density upper outer left breast Post-Operative Diagnosis: Same Surgery/Procedure Performed:: Repeat stereotactic needle core biopsy upper mid outer left breast Description of Surgical Findings:: Timeout informed consent was obtained. 82-year-old female was taken to the procedure room placed supine on the table the left breast was placed in a cc view images demonstrated the area of concern stereotactic images were obtained digital information obtained on a single target site breast was prepped with Betadine targeting on sample room supervisor had been selected replacing major 1 1% lidocaine was used as local anesthetic 15 cc was used small stab incision was created a 8 gauge resolved needle was advanced to prefire depth however I did advance 20 mm as I felt that the targeting was likely superficial and no breast tissue was obtained on the previous attempt. Multiple cores were obtained circumferentially. A marking clip was left in position at 12 o'clock position. She tolerated the procedure well. Specimen films were obtained no marking clip was present in those. Specimens were then immediately transferred to formalin. She was released from the device and pressure was held for hemostasis followed by Steri-Strip Telfa OpSite dressing. She was given activity wound care instructions. Final pathology is pending. Tima Oviedo M.D., F.A.C.S. Surgeon: Tima Oviedo Type of Anesthesia: Local
== END | disposition home or self-care (01) ==
LOC: BIRAD 10:33
PROVIDERS: PCP Family Medicine; Referring Provider Surgery; Visit Provider Surgery
DX: R92.8 Other abnormal and inconclusive findings on diagnostic imaging of breast (principal); C50.912 Malignant neoplasm of unspecified site of left female breast
CPT/HCPCS: 19081; 88305; 88341; 88342; 88368; J7050; A4648

== ENCOUNTER → 2023-04-15 | Outpatient (CLI) | payer MEDICARE, OTHER, SELFPAY ==
--- NOTE | 2023-04-15 17:43 | CT_ITS ---
STUDY: CT CHEST, ABDOMEN T PELVIS WITH CONTRAST REASON FOR EXAM: Female, 82 years old. MALIGNANT NEOPLASM OF LEFT BREAST RADIATION DOSAGE (If Supplied By Facility): CTDIvol = ( 15.27 ) mGy, DLP = ( 962.77 ) mGycm TECHNIQUE: Transaxial imaging was performed following intravenous administration of IV 100mL Isovue-370. Individualized dose optimization techniques were used for this CT. COMPARISON: FINDINGS: CHEST The lungs are normal. There is no demonstrated pleural abnormality. Normal heart and pericardium. Normal mediastinum. Normal hilar regions. Normal unenhanced pulmonary arteries. Normal aorta arch and descending thoracic aorta. Normal osseous structures. ABDOMEN Normal liver. Normal gallbladder and extrahepatic biliary system. Normal spleen. Normal pancreas. Normal bilateral adrenal glands. Normal right kidney. Normal left kidney. Possible wall thickening at the distal portion of the stomach. Small hiatal hernia. Normal small intestine. Diverticulosis of the colon. The appendix is not visualized. Calcified abdominal aorta. Normal inferior vena cava. Normal retroperitoneum. Normal abdominal wall. Degenerative vertebral changes. PELVIS Minimal gas in the urinary bladder with mild wall thickening. There is no pelvic fluid. There is no pelvic lymphadenopathy or mass lesion. Normal visualized pelvic arteries. CT/CT Chest, Abd, Pel w/Contrast IMPRESSION: Minimal gas in the urinary bladder with mild wall thickening. Infectious etiology cannot be excluded. Possible distal gastric wall thickening. Diverticulosis. Electronically Signed: Elias Diop DO at 18:44 EST ,
[2023-04-15 18:17] LABS: CREATININE FINGERSTICK < 0.9 mg/dL (0.55-1.02); EGFR FINGERSTICK > 60.0000 mL/min (>60)
== END | disposition home or self-care (01) ==
LOC: CT 17:41
PROVIDERS: PCP Family Medicine; Visit Provider Internal Medicine Medical Oncology
DX: C50.812 Malignant neoplasm of overlapping sites of left female breast (principal); C50.912 Malignant neoplasm of unspecified site of left female breast
CPT/HCPCS: 71260; 74177; Q9967

== ENCOUNTER → 2023-04-20 | Outpatient (CLI) | payer MEDICARE, OTHER, SELFPAY ==
--- NOTE | 2023-04-20 12:57 | MRI_ITS ---
STUDY: BILATERAL BREAST MR WITHOUT AND WITH CONTRAST REASON FOR EXAM: Female, 82 years old. Left breast cancer. TECHNIQUE: Multi-sequence multi-echo imaging of both breasts was performed with a dedicated breast coil. T1-weighted and T2-weighted images were performed before the administration of contrast. T1-weighted images were also performed after the intravenous administration of 14ml of Clariscan contrast. COMPARISON: Stereotactic biopsy images dated March 25, 2023 and March 11, 2023, left breast ultrasound dated February 17, 2023, left diagnostic mammogram dated February 17, 2023, screening mammogram dated February 16, 2023 and screening mammogram dated July 25, 2018. FINDINGS: RIGHT BREAST: Scattered fibroglandular density with minimal background enhancement. No abnormal enhancing masses or areas of non-mass enhancement in the right breast. Normal left axillary lymph nodes. LEFT BREAST: Scattered fibroglandular density with minimal background enhancement. In the upper outer quadrant of the left breast corresponding to the mammographic and ultrasonographic abnormalities there is an area of clumped linear non-mass enhancement measuring 4.1 cm x 3.2 cm x 3.3 cm. Multiple enlarged lymph nodes in the left breast. No abnormality in the visualized regions of the chest or liver. MRI/Breast Bilateral W/O and W IMPRESSION: Comment linear non-mass enhancement in the upper outer quadrant of the left breast measuring 4.1 cm x 3.2 cm x 3.3 cm. Multiple enlarged lymph nodes in the left breast. CATEGORY: BIRADS Category 6: Known Biopsy-Proven Malignancy - Appropriate Action Should Be Taken. A letter regarding these results will be sent to the patient by the facility within 30 days. Electronically Signed: Baljit Giles MD at 16:04 EST ,
== END | disposition home or self-care (01) ==
LOC: MRI 12:54
PROVIDERS: PCP Family Medicine; Referring Provider Surgery; Visit Provider Surgery
DX: C50.912 Malignant neoplasm of unspecified site of left female breast (principal)
CPT/HCPCS: 77049; A9575; A4216; C8908

== ENCOUNTER → 2023-05-06 | Outpatient (CLI) | payer MEDICARE, OTHER, SELFPAY ==
[2023-05-06 13:39] LABS: Color, Urine Yellow (Yellow); Glucose, Dipstick Normal (Normal); Ketone-Dipstick Negative (Negative); Leukocyte Esterase-Dipstick 100 /ul (Negative); Nitrite-Dipstick Positive (Negative); Occult Blood-Urine 10 /ul (Negative); Protein-Dipstick 15 mg/dl (Negative); Specific Gravity, Urine 1.015 (1.002-1.030); Urine Bilirubin Dipstick Negative (Negative); Urine Clarity Sl. Cloudy (Clear); Urine Urobilinogen Normal (Normal)
[2023-05-06 13:44] LABS: White Blood Cells 10-25 SEEN /hpf (0-5)
[2023-05-06 13:47] LABS: Bacteria 3+ /hpf (None Seen); Mucous, Urine RARE /hpf (<or=2+); Red Blood Cells-Urine 0-5 SEEN /hpf (0-5); Squamous Epithelial Cells - UA 0-5 SEEN /hpf (5-10)
== END | disposition home or self-care (01) ==
LOC: PAVLAB 11:10
PROVIDERS: PCP Family Medicine; Referring Provider Surgery; Visit Provider Surgery
DX: R94.31 Abnormal electrocardiogram [ECG] [EKG] (principal)
CPT/HCPCS: 81001

== ENCOUNTER 2023-05-07 05:45 | Day surgery (SDC) | payer MEDICARE, OTHER, SELFPAY ==
[2023-05-07] VITALS (7 sets, daily range): BP systolic 84–158; BP diastolic 57–91; PULSE 66–83; RESP 16–18; TEMP 36.4–37; O2SAT 94–99; BMI 27.0
--- NOTE | 2023-05-07 06:37 | PCM.HP.BLA ---
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 Is patient in pain?: No Allergies Sulfa (Sulfonamide Antibiotics) Allergy (Verified 05/06/23 10:17) Rashmorphine Adverse Reaction (Verified 05/06/23 10:17) WxyosUdxtcxv-GVV-OdQ Reductase Inhibitor [Iysmjfu-Rpb-Hpc Reductase Inhibitor] Adverse Reaction (Verified 05/06/23 10:17) Pain in joints Medications lisinopril 10 mg tablet 20 mg PO DAILY 02/29/16 [History Confirmed 05/06/23] orphenadrine citrate 100 mg tablet,extended release 100 mg PO BID PRN Muscle Spasm #14 TABLETS 05/04/17 [Rx Confirmed 05/06/23] metoprolol tartrate 50 mg tablet 50 mg PO BID #180 tabs 06/21/17 [Rx Confirmed 05/06/23] acetaminophen 500 mg tablet (Tylenol Extra Strength) 500 mg PO Q6H PRN 04/13/23 [History Confirmed 05/06/23] ibuprofen 200 mg tablet 400 mg PO Q6H PRN 04/13/23 [History Confirmed 05/06/23] PFSH Medical History Abnormal CT scan, bladder Abnormal ECG Abnormal mammogram of left breast Acute electrocardiogram changes HLD (hyperlipidemia) Murmur, cardiac Palpitations Tachycardia Uncontrolled hypertension Surgical History S/P carpal tunnel release S/P cataract extraction S/P left knee surgery Family History Sister Breast cancerMother Heart disease Social History Smoking Status: Former smoker quit date: 04/13/23 Tobacco: How many years used: 14 alcohol intake: never HPI HPI HPI: 83-year-old female returns to discuss the finding of invasive lobular carcinoma left breast. She has been seen in medical oncology consultation with Dr. Angelo Rod. He pursued abdominal pelvic chest CT imaging. That demonstrated minimal gas in the urinary bladder and some possible mild wall thickness. Unclear whether urinary tract infection could be present. Also some possible gastric wall thickening and diverticulosis. I have reviewed those images and concur particular about the gastric wall thickening. There are a few bubbles of air in the urinary bladder. No evidence of metastatic disease. The patient also on April 20, 2023 had bilateral breast MRI. This demonstrates linear non-mass enhancement of the upper outer quadrant left breast measuring 4.1 x 3.2 x 3.3 cm. Multiple enlarged lymph nodes noted in the left breast. I have reviewed these images. This report is been reviewed by Dr. Angelo Rod as well. Dr Rod saw the patient on May 04, 2023. Reviewed the pathology on stereotactic core biopsy showing invasive lobular carcinoma grade 1, ER greater than 95% and MN greater than 95% with HER2/charissa 1-2+. He makes comment that clinically cannot detect any left axillary adenopathy however on my review the MRI that does appear to be enlarged lymph nodes on the left. He has are clinically staged as stage IIa (cT2 cN0 M0). He also makes note of the gastric wall thickening. The patient presents with her daughter today. 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 Is patient in pain?: No Allergies Sulfa (Sulfonamide Antibiotics) Allergy (Verified 04/09/23 15:17) Rashmorphine Adverse Reaction (Verified 04/09/23 15:17) GpuekLrvvzsw-UDR-NmC Reductase Inhibitor [Tcrlugh-Nya-Qho Reductase Inhibitor] Adverse Reaction (Verified 04/09/23 15:17) Pain in joints Medications lisinopril 10 mg tablet 20 mg PO DAILY 02/29/16 [History Confirmed 04/09/23] cholecalciferol (vitamin D3) 25 mcg (1,000 unit) tablet (Vitamin D3) 2,000 unit PO DAILY 05/07/16 [History Confirmed 04/09/23] orphenadrine citrate 100 mg tablet,extended release 100 mg PO BID PRN Muscle Spasm #14 TABLETS 05/04/17 [Rx Confirmed 04/09/23] metoprolol tartrate 50 mg tablet 50 mg PO BID #180 tabs 06/21/17 [Rx Confirmed 04/09/23] PFSH Medical History Abnormal ECG Abnormal mammogram of left breast Acute electrocardiogram changes HLD (hyperlipidemia) Murmur, cardiac Palpitations Tachycardia Uncontrolled hypertension Surgical History S/P carpal tunnel release S/P cataract extraction S/P left knee surgery Family History Sister Breast cancerMother Heart disease Social History Smoking Status: Never smoker alcohol intake: never HPI HPI HPI: 82-year-old female returns to discuss stereotactic needle core left breast biopsy results. It is of note that on March 11, 2023 I performed a stereotactic needle core left breast biopsy and evaluation of his streaky density in the slightly outer left breast. The procedure appeared to go well. She did have some bleeding at that time and longer compression was held. Pathology showed care adipose tissue but no ductal epithelium to represent breast tissue was present. I discussed this finding with the patient I recommended a repeat attempt. I felt that due to the streaky artifact that the stereotactic ointment lightly had difficulty setting a target depth. We therefore on March 25, 2023 we repeated the stereotactic needle core left breast biopsy. Final pathology now demonstrates invasive lobular carcinoma nuclear grade 1. The longest length was 1.4 cm. Estrogen receptor was greater than 95% and progesterone receptor greater than 95% with HER2/charissa 1-2+. ANTIBODY / CLONE RESULT Block 2 E-Cad (ECH-6) negative CK8 (31dfhnO66) positive Calponin-1 (NR167Y) negative CK5-6 (D5 & 1684) negative P40 (BC28) negative P53 (DO-7) negative (null pattern) Ki-67 (30-9) positive, low (~2%) MORPHOMETRIC ANALYSIS ER (clone 6F11) >95%, strong intensity MN (clone 16/1E2) >95%, moderate intensity Her-2Neu (clone CB11) 1-2+ My previous notes reflect the following. 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 Is patient in pain?: No Allergies Sulfa (Sulfonamide Antibiotics) Allergy (Verified 03/08/23 12:11) Rashmorphine Adverse Reaction (Verified 03/08/23 12:11) KhdyiPpqmdwk-XIF-JeV Reductase Inhibitor [Niagliy-Def-Mwf Reductase Inhibitor] Adverse Reaction (Verified 03/08/23 12:11) Pain in joints Medications lisinopril 10 mg tablet 20 mg PO DAILY 02/29/16 [History Confirmed 03/08/23] cholecalciferol (vitamin D3) 25 mcg (1,000 unit) tablet (Vitamin D3) 2,000 unit PO DAILY 05/07/16 [History Confirmed 03/08/23] orphenadrine citrate 100 mg tablet,extended release 100 mg PO BID PRN Muscle Spasm #14 TABLETS 05/04/17 [Rx Confirmed 03/08/23] metoprolol tartrate 50 mg tablet 50 mg PO BID #180 tabs 06/21/17 [Rx Confirmed 03/08/23] PFSH Medical History (Updated 03/08/23 @ 12:[address] Tima Oviedo MD) Abnormal ECG Abnormal mammogram of left breast Acute electrocardiogram changes HLD (hyperlipidemia) Murmur, cardiac Palpitations Tachycardia Uncontrolled hypertension Surgical History (Updated 03/08/23 @ 12:10 by Steffi Mancuso) S/P carpal tunnel release S/P cataract extraction S/P left knee surgery Family History (Updated 03/08/23 @ 12:11 by Steffi Mancuso) Sister Breast cancerMother Heart disease Social History (Updated 03/08/23 @ 12:11 by Steffi Mancuso) Smoking Status: Never smoker alcohol intake: never HPI HPI HPI: 82-year-old female is being referred by Dr. Anson Bautista for surgical consultation regarding abnormal mammographic and breast ultrasound imaging. A written copy of my surgical consult recommendations will return to him. As noted below on February 16, 2023 the patient had bilateral screening mammography and then on February 17, 2023 she had diagnostic left breast mammogram and ultrasonography. I have personally reviewed these images. On mammogram there is felt to be a focal architectural distortion in the upper outer aspect of the left breast however this area is rather diffuse. Ultrasound suggests that a much smaller 9 x 9 x 4 mm ill-defined area. This is extraordinarily vague and does not seem to correlate well with the diffuse area on mammogram to my review. 82-year-old female. G5, . Menarche at age 14. First child born when she was 18. She did not breast-feed. No history of any previous breast biopsies. She was briefly on estrogen replacement therapy remotely but that was only for approximately 1 year. Family history is notable for a sister who had breast cancer at approximately age 77 or 78 but she had been on chronic OCPs. The patient denies any nipple discharge. She has had chronic lifelong breast tenderness. She herself cannot detect any focal changes in her own self breast exam February 16, 2023 MAMMOGRAPHY - BILATERAL SCREENING REASON FOR EXAM: Female, 82 years old. Routine annual screening examination. PERTINENT HISTORY: Sister with breast cancer. TECHNIQUE: Digital bilateral breast rodriguez (3D mammographic acquisition) in the CC and MLO projections. 2-D mediolateral oblique (MLO) and craniocaudad (CC) views of both breasts were obtained. CAD: Full Field Digital Mammography with Computer Added Detection was performed. COMPARISON: Comparison is made with prior study dated July 25, 2018. FINDINGS: Breast Composition: There are scattered areas of fibroglandular density. Focal area of architectural distortion is seen in the upper deep slightly lateral aspect of the left breast. The patient will be recalled for additional views including compression spot views and 90 degree lateral view. No other significant abnormalities are identified. BI/SCRN MAMM (CAD)W/RODRIGUEZ BILAT IMPRESSION: Focal area of architectural distortion is seen in the upper deep slightly lateral aspect of the left breast as described. The patient will be recalled for additional views including 90 degree lateral and compression spot views. ASSESSMENT CATEGORY: BIRADS Category 0: Incomplete. Need additional imaging evaluation. A letter regarding these results will be sent to the patient by the facility within 30 days. Approximately 10% of breast cancers are not detected by mammography. A normal mammogram should not delay biopsy of a clinically suspicious abnormality. [id number] Electronically Signed: Tyree Valenzuela MD at 8:54 EDT , February 17, 2023 MAMMOGRAPHY - UNILATERAL DIAGNOSTIC: LEFT BREAST REASON FOR EXAM: Female, 82 years old. Abnormal screening mammogram. PERTINENT HISTORY: Sister with breast cancer. TECHNIQUE: Compression spot views of the left breast in the mediolateral oblique and craniocaudad projections as well as 90 degree lateral view were obtained. CAD: Full Field Digital Mammography with Computer Added Detection was performed. COMPARISON: Comparison is made with prior study February 16, 2023. FINDINGS: Breast Composition: There are scattered areas of fibroglandular density. Persistent focal architectural distortion in the upper lateral aspect of the left breast. Correlation with ultrasound is recommended. No other significant abnormalities are identified. BI/DIAG MAMM W/CAD, UNILAT IMPRESSION: Persistent focal architectural distortion in the upper outer aspect of the left breast as described. Correlation with ultrasound is recommended. ASSESSMENT CATEGORY: BIRADS Category 0: Incomplete. Need additional imaging evaluation. A letter regarding these results will be sent to the patient by the facility within 30 days. Approximately 10% of breast cancers are not detected by mammography. A normal mammogram should not delay biopsy of a clinically suspicious abnormality. Electronically Signed: Tyree Valenzuela MD at 10:14 EDT , February 17, 2023 STUDY: ULTRASOUND BREAST - LEFT REASON FOR EXAM: Female, 82 years old. Abnormal mammogram. TECHNIQUE: Axial and longitudinal images of the LEFT breast were performed with a high resolution ultrasound transducer. # OF IMAGES: 39 COMPARISON: Comparison is made with prior mammogram dated February 16, 2023 and February 17, 2023. FINDINGS: LEFT Breast: At the 12:00 position of the breast at 3 cm from nipple, there is a 9 mm x 9 mm x 4 mm ill-defined subtle architectural distortion corresponded to the mammographic findings. Biopsy recommended. US/Breast Limited Unilateral IMPRESSION: Subtle 9 mm x 9 mm x 4 mm ill-defined architectural distortion at the 12:00 position of the breast at 3 cm from the nipple. Biopsy recommended. ASSESSMENT CATEGORY: BIRADS Category 4: Suspicious - Biopsy Should Be Considered. A letter regarding these results will be sent to the patient by the facility within 30 days. Electronically Signed: Tyree Valenzuela MD at 10:43 EDT , ROS General General: Yes fatigue; No weight change, appetite, colon cancer, breast cancer or weakness HEENT HEENT: No difficulty swallowing, eye injury, eye surgery, swollen glands or hoarseness Endo Endocrine: No thyroid disease, diabetes mellitus, thyroid cancer, Hair loss, heat intolerance or cold intolerance Skin Skin: No rash or changing moles Breast Breast: No left breast lump, right breast lump, nipple discharge, breast pain, abnormal mammogram, abnormal US or breast enlargement Musc Musculoskeletal: Yes arthritis; No back problems, rheumatoid arthritis, gout or joint pain Cardio Cardiovascular: Yes high blood pressure; No murmur, pacemaker, heart disease, atrial fibrillation, heart attack, heart stent, palpitations, shortness of breat with exertion or chest pain Psych Psychiatric: Yes anxiety; No depression or hearing voices Resp Respiratory: No shortness of breath, No sleep apnea, No cough, No COPD, No asthma, No emphysema and No wheezing Gastro Gastrointestinal: No abdominal pain, No nausea or vomiting, No diarrhea, Yes constipation, No blood in stool, No acid reflux, No hemorrhoids, No ulcers, No gallbladder problem and No black,tarry stools Vinicio Hematologic: No blood thinners, No blood disorders, No bleeding, No anemia and No blood clots Neuro Neurologic: No system reviewed and no additional complaints, except as documented, No as per HPI, No abnormal gait, No abnormal hearing, No abnormal movements, No abnormal speech, No behavioral changes, No burning sensations, No confusion, No convulsions, No disequilibrium, No dizziness, No localized weakness, No frequent falls, No headache(s), No lack of coordination, No loss of vision, No memory loss, No numbness, No other visual disturbances, No radicular pain, No restless legs, No sensory deficit, No syncope, No tingling, No tremor(s), No weakness and No other Exam Const General: cooperative, healthy appearing, comfortable and no acute distress Nutritional Appearance: average body habitus Orientation: alert, awake and oriented x3 HENMT Head: normal to inspection Eyes General: appearance normal, both eyes and all related structures Neck Neck: normal visual inspection Chest Other: Right breast: No focal mass. No nipple discharge. No axillary or clavicular adenopathy, mild diffuse tenderness to even light palpation Left breast: No focal mass. No nipple discharge. No axillary or clavicular adenopathy, mild diffuse tenderness to light palpation Resp Effort & Inspection: normal respiratory effort Auscultation: clear to auscultation bilaterally Assessment and Plan Assessment and Plan (1) Abnormal mammogram of left breast: Status: Acute Plan: As noted above I do not believe that the streaky area of abnormality on mammogram correlates with the very nondescript at 9 mm area felt to be possibly identified on ultrasound. I believe that the ultrasound finding is quite vague at best. I propose for her stereotactic needle core biopsy left breast upper outer quadrant. I described the technique, benefit, risk, alternatives. She has had an opportunity to ask and have questions answered. We will proceed as noted. I appreciate the opportunity of assisting with her surgical care. Copy: Dr. Anson Oviedo M.D., F.A.C.S. ROS General General: Yes fatigue; No weight change, appetite, colon cancer, breast cancer or weakness HEENT HEENT: No difficulty swallowing, eye injury, eye surgery, swollen glands or hoarseness Endo Endocrine: No thyroid disease, diabetes mellitus, thyroid cancer, Hair loss, heat intolerance or cold intolerance Skin Skin: No rash or changing moles Breast Breast: No left breast lump, right breast lump, nipple discharge, breast pain, abnormal mammogram, abnormal US or breast enlargement Musc Musculoskeletal: Yes arthritis; No back problems, rheumatoid arthritis, gout or joint pain Cardio Cardiovascular: Yes high blood pressure; No murmur, pacemaker, heart disease, atrial fibrillation, heart attack, heart stent, palpitations, shortness of breat with exertion or chest pain Psych Psychiatric: Yes anxiety; No depression or hearing voices Resp Respiratory: No shortness of breath, No sleep apnea, No cough, No COPD, No asthma, No emphysema and No wheezing Gastro Gastrointestinal: No abdominal pain, No nausea or vomiting, No diarrhea, Yes constipation, No blood in stool, No acid reflux, No hemorrhoids, No ulcers, No gallbladder problem and No black,tarry stools Vinicio Hematologic: No blood thinners, No blood disorders, No bleeding, No anemia and No blood clots Neuro Neurologic: No system reviewed and no additional complaints, except as documented, No as per HPI, No abnormal gait, No abnormal hearing, No abnormal movements, No abnormal speech, No behavioral changes, No burning sensations, No confusion, No convulsions, No disequilibrium, No dizziness, No localized weakness, No frequent falls, No headache(s), No lack of coordination, No loss of vision, No memory loss, No numbness, No other visual disturbances, No radicular pain, No restless legs, No sensory deficit, No syncope, No tingling, No tremor(s), No weakness and No other Assessment and Plan Assessment and Plan (1) Lobular carcinoma of left breast: Status: Acute Plan: 82-year-old female with newly diagnosed invasive lobular carcinoma slightly lateral left breast. This was detected an area of this subtle architectural distortion seen on mammogram with a breast ultrasound suggesting at the 12 o'clock position +3 cm left breast a 9 x 9 x 4 mm ill-defined area. On my personal review of the ultrasound I thought that this area highlighted was extraordinarily vague and it was not clear to me that this correlates with the item on mammogram. April 15, 2023 STUDY: CT CHEST, ABDOMEN T PELVIS WITH CONTRAST REASON FOR EXAM: Female, 82 years old. MALIGNANT NEOPLASM OF LEFT BREAST RADIATION DOSAGE (If Supplied By Facility): CTDIvol = ( 15.27 ) mGy, DLP = ( 962.77 ) mGycm TECHNIQUE: Transaxial imaging was performed following intravenous administration of IV 100mL Isovue-370. Individualized dose optimization techniques were used for this CT. COMPARISON: FINDINGS: CHEST The lungs are normal. There is no demonstrated pleural abnormality. Normal heart and pericardium. Normal mediastinum. Normal hilar regions. Normal unenhanced pulmonary arteries. Normal aorta arch and descending thoracic aorta. Normal osseous structures. ABDOMEN Normal liver. Normal gallbladder and extrahepatic biliary system. Normal spleen. Normal pancreas. Normal bilateral adrenal glands. Normal right kidney. Normal left kidney. Possible wall thickening at the distal portion of the stomach. Small hiatal hernia. Normal small intestine. Diverticulosis of the colon. The appendix is not visualized. Calcified abdominal aorta. Normal inferior vena cava. Normal retroperitoneum. Normal abdominal wall. Degenerative vertebral changes. PELVIS Minimal gas in the urinary bladder with mild wall thickening. There is no pelvic fluid. There is no pelvic lymphadenopathy or mass lesion. Normal visualized pelvic arteries. CT/CT Chest, Abd, Pel w/Contrast IMPRESSION: Minimal gas in the urinary bladder with mild wall thickening. Infectious etiology cannot be excluded. Possible distal gastric wall thickening. Diverticulosis. Electronically Signed: Elias Diop DO at 18:44 EST Reading Location ID and State: [facility] / [place] Tel [phone], Service support , April 20, 2023 STUDY: BILATERAL BREAST MR WITHOUT AND WITH CONTRAST REASON FOR EXAM: Female, 82 years old. Left breast cancer. TECHNIQUE: Multi-sequence multi-echo imaging of both breasts was performed with a dedicated breast coil. T1-weighted and T2-weighted images were performed before the administration of contrast. T1-weighted images were also performed after the intravenous administration of 14ml of Clariscan contrast. COMPARISON: Stereotactic biopsy images dated March 25, 2023 and March 11, 2023, left breast ultrasound dated February 17, 2023, left diagnostic mammogram dated February 17, 2023, screening mammogram dated February 16, 2023 and screening mammogram dated July 25, 2018. FINDINGS: RIGHT BREAST: Scattered fibroglandular density with minimal background enhancement. No abnormal enhancing masses or areas of non-mass enhancement in the right breast. Normal left axillary lymph nodes. LEFT BREAST: Scattered fibroglandular density with minimal background enhancement. In the upper outer quadrant of the left breast corresponding to the mammographic and ultrasonographic abnormalities there is an area of clumped linear non-mass enhancement measuring 4.1 cm x 3.2 cm x 3.3 cm. Multiple enlarged lymph nodes in the left breast. No abnormality in the visualized regions of the chest or liver. MRI/Breast Bilateral W/O and W IMPRESSION: Comment linear non-mass enhancement in the upper outer quadrant of the left breast measuring 4.1 cm x 3.2 cm x 3.3 cm. Multiple enlarged lymph nodes in the left breast. CATEGORY: BIRADS Category 6: Known Biopsy-Proven Malignancy - Appropriate Action Should Be Taken. A letter regarding these results will be sent to the patient by the facility within 30 days. Electronically Signed: Baljit Giles MD at 16:04 EST , ROS General General: No weight change, appetite, fatigue, colon cancer, breast cancer or weakness HEENT HEENT: No difficulty swallowing, eye injury, eye surgery, swollen glands or hoarseness Endo Endocrine: No thyroid disease, diabetes mellitus, thyroid cancer, Hair loss, heat intolerance or cold intolerance Skin Skin: No rash or changing moles Breast Breast: No left breast lump, right breast lump, nipple discharge, breast pain, abnormal mammogram, abnormal US or breast enlargement Musc Musculoskeletal: No back problems, arthritis, rheumatoid arthritis, gout or joint pain Cardio Cardiovascular: No murmur, pacemaker, heart disease, atrial fibrillation, high blood pressure, heart attack, heart stent, palpitations, shortness of breat with exertion or chest pain Psych Psychiatric: No depression, anxiety or hearing voices Resp Respiratory: No shortness of breath, No sleep apnea, No cough, No COPD, No asthma, No emphysema and No wheezing Gastro Gastrointestinal: No abdominal pain, No nausea or vomiting, No diarrhea, No constipation, No blood in stool, No acid reflux, No hemorrhoids, No ulcers, No gallbladder problem and No black,tarry stools Vinicio Hematologic: No blood thinners, No blood disorders, No bleeding, No anemia and No blood clots Neuro Neurologic: No system reviewed and no additional complaints, except as documented, No as per HPI, No abnormal gait, No abnormal hearing, No abnormal movements, No abnormal speech, No behavioral changes, No burning sensations, No confusion, No convulsions, No disequilibrium, No dizziness, No localized weakness, No frequent falls, No headache(s), No lack of coordination, No loss of vision, No memory loss, No numbness, No other visual disturbances, No radicular pain, No restless legs, No sensory deficit, No syncope, No tingling, No tremor(s), No weakness and No other Assessment and Plan Assessment and Plan (1) Lobular carcinoma of left breast: Status: Acute Comment: L breast lobular carcinoma, tumor size 4cm, clinically no axillary lymph nodes. Stage IIA(cT2 cN0 M0). Discussed Primary breast cancer, BCS followed by +/-RT, Mastectomy, adjuvant hormonal therapy. Pathology after surgery may globe changer. Pt wants to proceed with surgical management. Plan: This was a 45-minute [id number] consultative appointment with additional preoperative review of all studies imaging taking total of 60 minutes I explained to the patient the finding of CT scans demonstrating thickening of the gastric wall. She does not have symptoms but I am recommending a esophagogastroduodenoscopy with biopsy if indicated. We have discussed technique benefit risk complication alternatives. She has had an opportunity to me to ask and have questions answered. We will try to expedite this management. Because of the small bubble of air in the urinary bladder I recommend to her urinalysis culture and sensitivity. Regarding the left breast she has this diffuse area with that is irregular and not forming distinct mass. I have told her I do not believe that the preoperative ultrasound findings and mammogram findings are the same area. I previously discounted the ultrasound findings as being extraordinarily vague. She may however have multifocal disease of lobular carcinoma in the left breast. I do not believe that she is a candidate for a left breast lumpectomy due to the extent of the suspected disease process and potential for multifocality. I also shared with her that I have some concerns regarding the adenopathy in the left axilla that is demonstrated on MRI. I have discussed with her a left total mastectomy with left actually blue dye and nuclear tracer sentinel lymph node biopsy with possible need to convert to a left axillary lymph node dissection. She is aware of technique, benefit, risk, alternatives. We additionally discussed reconstruction either no reconstruction or immediate reconstruction or delayed reconstruction. I discussed that we have a local plastic surgeon that would be able to assist with the reconstruction by inserting an implant. She would need to be seen in consultation. It is of note that a soft tissue transfer reconstruction would not be available locally but that we could transfer her to a tertiary center for all of her breast care management. She has had extensive opportunity to ask the technique benefit risk complications of this varied approach. At this point she is willing to proceed with the urinalysis check in the EGD and she is allowing us to schedule her for a left mastectomy with blue dye nuclear tracer sentinel lymph node biopsy with conversion to left axillary lymph node dissection if indicated. We will try to schedule and expedite her care. She will notify us if after additional discussion with her daughter her desires change. Copy: Dr. Anson Bautista and Dr. Angelo Oviedo M.D., F.A.C.S. The patient's urinalysis was determined to be abnormal. She has been initiated on Bactrim DS 1 tablet twice daily while awaiting culture results. Tima Oviedo M.D., F.A.C.S.
[2023-05-07] MEDS: Lactated Ringers 1,000 ML 15 ML IV (06:38)
--- NOTE | 2023-05-07 07:00 | EGD_PTH ---
PATIENT: TREVER BOOTH LOC: EN U#:[id number] AGE/SX: 83/F ROOM: RE05/07/[address]: Dr. Tima Oviedo MD : 1940 BED: DIS: 05/07/2023 SPEC #: [id number] RECD: 05/07/23 10:58 STATUS: NICOLAS ANDRES #: [id number] KASH: 05/07/23 07:[address]: Tima Oviedo DEPT: SURGICAL PATHOLOGY RECD BY: Meg Salazar ENTERED: 05/07/23 12:20 SP TYPE: EGD BIOPSY OT DR: Dr. Anson Bautista MD Tissues: A - Gastric mucous membrane B - Stomach, NOS C - Esophagus, NOS Procedures: Special Stain Group II Surgery Specimen Level IV Alcian Blue/PAS (control) HEADER OPERATION: EGD, biopsy PRE-OP DIAGNOSIS: Abnormal CT scan TISSUE SUBMITTED: A - Antrum biopsy for histo and H. pylori, B - Greater curvature polyp biopsy, C - Distal esophagus biopsy MICROSCOPIC DIAGNOSIS A. Gastric antrum, biopsy: Mild chronic gastritis., See comment. B. Stomach, greater curvature polyp, biopsy: Fundic gland polyp. C. Distal esophagus, biopsy: Gastroesophageal junctional mucosa with mild chronic inflammation. No evidence of goblet cell metaplasia. See comment. AM:aleja 05/10/2023 COMMENT A. The results of immunohistochemistry for Helicobacter pylori will be reported separately ([id number]). B. Alcian blue/PAS stain with matched control supports the above diagnosis. MICROSCOPIC DESCRIPTION Slides are reviewed. GROSS DESCRIPTION A - Received in fixative is one container labeled with the patient's name and designated gastric antrum. The specimen consists of one irregular fragment of light massey soft tissue that measures 0.5 x 0.3 x 0.1 cm. The specimen is totally submitted in one cassette. B - Received in fixative is one container labeled with the patient's name and designated greater curvature polyp. The specimen consists of one irregular fragment of light massey soft tissue that measures 0.6 x 0.5 x 0.1 cm. The specimen is totally submitted in one cassette. C - Received in fixative is one container labeled with the patient's name and designated distal esophagus. The specimen consists of multiple irregular fragments of light massey soft tissue that in aggregate measure 0.6 x 0.2 x 0.1 cm. The specimen is totally submitted in one cassette. / AM:aleja 05/07/2023 TC:3 CPT: 71141 x3, 48264
--- NOTE | 2023-05-07 07:00 | IMM_PTH ---
PATIENT: TREVER BOOTH LOC: EN U#:[id number] AGE/SX: 83/F ROOM: RE05/07/[address]: Dr. Tima Oviedo MD : 1940 BED: DIS: 05/07/2023 SPEC #: [id number] RECD: 05/07/23 12:45 STATUS: NICOLAS REQ #: [id number] KASH: 05/07/23 07:[address]: Tima Oviedo DEPT: IMMUNOHISTOCHEMISTRY RECD BY: Breanna Hensley ENTERED: 05/07/23 12:47 SP TYPE: IMMUNO OTHR DR: Dr. Anson Bautista MD Tissues: A - Stomach, NOS Procedures: H Pylori (initial) PHYSICIAN & INSTITUTION [place] [address] SPECIMEN INFORMATION: Tissue Source: A - Antrum Clinical Info: Abnormal CT scan Specimen Number: [id number] CPT code: 90785 METHODOLOGY: Deparaffinized sections of prefer/formalin-fixed tissue or PAP/DQ stained slides are incubated with monoclonal/polyclonal antibodies/oligonucleotide probes. Localization is made via biotin free immunoperoxidase method. Appropriate controls are performed and reacted as expected. Results on target cell population are indicated in the following table: RESULTS: ANTIBODY / CLONE RESULT Block A H Pylori (polyclonal) negative These tests were developed and their performance characteristics determined by [facility]. They may not have been cleared or approved by the U.S. Food and Drug Administration. The FDA has determined that such clearance or approval is not necessary. The above immunohistochemical/dualISH markers are ordered and reviewed by the Pathologist. INTERPRETATION: A. Antrum, biopsy: Negative for Helicobacter pylori organisms. AM:aleja 05/10/2023
--- NOTE | 2023-05-07 07:10 | OP.CCLET_ITS ---
05/07/2023 Anson Bautista [address] [place] [address] Re : Upper GI endoscopy procedure for Janine Howey Dear Dr. Bautista This procedure was performed on Sunday, May 07, 2023. My impressions and recommendations are as follows: Impressions : - Z-line variable, 34 cm from the incisors. Biopsied. - 3 cm hiatal hernia. - Multiple gastric polyps. Resected and retrieved. - Erythematous mucosa in the antrum. Biopsied. - Normal examined duodenum. Recommendations : - Discharge patient to home. - Resume previous diet. - Continue present medications. - Telephone my office for pathology results in [address] likely correlate with some mucosal fold thickening of the prepyloric area. Biopsy obtained of this area. Clinically it appears benign. My findings are described in the full procedure note, which is enclosed. If I can be of further assistance, please feel free to contact me at Doctor phone number(s): Work: . Sincerely, Tima Oviedo MD 05/07/2023 7:09:19 AM This report has been signed electronically.
--- NOTE | 2023-05-07 07:10 | OP.EGD_ITS ---
Patient Name: Janine Berumen Procedure Date: 05/07/2023 6:42 AM Date of : 1940 Age: 83 Procedure: Upper GI endoscopy Indications: Abnormal CT of the GI tract Providers: Tima Oviedo MD Medicines: See the Anesthesia note for documentation of the administered medications Patient Profile: Previously obtained CT. Complications: No immediate complications. Procedure: Pre-Anesthesia Assessment: - Prior to the procedure, a History and Physical was performed, and patient medications and allergies were reviewed. The patient's tolerance of previous anesthesia was also reviewed. The risks and benefits of the procedure and the sedation options and risks were discussed with the patient. All questions were answered, and informed consent was obtained. Prior Anticoagulants: The patient has taken no anticoagulant or antiplatelet agents. ASA Grade Assessment: II - A patient with mild systemic disease. After reviewing the risks and benefits, the patient was deemed in satisfactory condition to undergo the procedure. After obtaining informed consent, the endoscope was passed under direct vision. Throughout the procedure, the patient's blood pressure, pulse, and oxygen saturations were monitored continuously. The Endoscope was introduced through the mouth, and advanced to the second part of duodenum. The upper GI endoscopy was accomplished without difficulty. The patient tolerated the procedure well. Scope In: 6:54:59 AM Scope Out: 7:01:00 AM Total Procedure Duration Time 0 hours 6 minutes 1 second Findings: The Z-line was variable and was found 34 cm from the incisors. Biopsies were taken with a cold forceps for histology. A 3 cm hiatal hernia was present. Multiple sessile polyps with no bleeding and no stigmata of recent bleeding were found in the gastric fundus and in the gastric body. The polyp was removed with a cold biopsy forceps. Resection and retrieval were complete. Diffuse mildly erythematous mucosa without bleeding was found in the gastric antrum. Biopsies were taken with a cold forceps for histology. The examined duodenum was normal. Impression: - Z-line variable, 34 cm from the incisors. Biopsied. - 3 cm hiatal hernia. - Multiple gastric polyps. Resected and retrieved. - Erythematous mucosa in the antrum. Biopsied. - Normal examined duodenum. Recommendation: - Discharge patient to home. - Resume previous diet. - Continue present medications. - Telephone my office for pathology results in [address] likely correlate with some mucosal fold thickening of the prepyloric area. Biopsy obtained of this area. Clinically it appears benign. Procedure Code(s): --- Professional --- 62753, Esophagogastroduodenoscopy, flexible, transoral; with biopsy, single or multiple Diagnosis Code(s): --- Professional --- K22.89, Other specified disease of esophagus K44.9, Diaphragmatic hernia without obstruction or gangrene K31.7, Polyp of stomach and duodenum K31.89, Other diseases of stomach and duodenum CPT copyright 2021 [employer]. All rights reserved. The codes documented in this report are preliminary and upon pumping supervisor review may be revised to meet current compliance requirements. Tima Oviedo MD 05/07/2023 7:09:19 AM This report has been signed electronically. Number of Addenda: 0 Note Initiated On: 05/07/2023 6:42 AM
== END 2023-05-07 10:54 | disposition home or self-care (01) ==
LOC: EN 05:48 → AC 05:49
PROVIDERS: PCP Family Medicine; Referring Provider Family Medicine; Visit Provider Surgery
PROC: 0DJ08ZZ Inspection of Upper Intestinal Tract, Via Natural or Artificial Opening Endoscopic (ICD-10-PCS; CPT 43235; principal; 2023-05-07 06:55)
DX: K29.50 Unspecified chronic gastritis without bleeding (principal); C50.912 Malignant neoplasm of unspecified site of left female breast; K31.7 Polyp of stomach and duodenum; K44.9 Diaphragmatic hernia without obstruction or gangrene; I10 Essential (primary) hypertension; K31.89 Other diseases of stomach and duodenum; K20.90 Esophagitis, unspecified without bleeding; N64.4 Mastodynia; Z79.899 Other long term (current) drug therapy; Z87.891 Personal history of nicotine dependence
CPT/HCPCS: 43239; 88305; 88313; 88342; J7120; J2405

== ENCOUNTER → 2023-05-11 | Outpatient (CLI) | payer MEDICARE, OTHER, SELFPAY ==
--- NOTE | 2023-05-11 15:04 | BD_ITS ---
STUDY: DUAL ENERGY X-RAY ABSORPTIOMETRY / DXA REASON FOR EXAM: Female, 83 years old. Z780 TECHNIQUE: Bone Mineral Density (BMD) measurements of lumbar spine and bilateral hips were obtained. COMPARISON: None. FINDINGS: Lumbar Spine (L1-L4): g/cm2 (1.021) / T-score (-0.2) / Z-score (2.6) Findings are suggestive of normal bone density with a low fracture risk. Left Femur Total: g/cm2 (0.862) / T-score (-0.7) / Z-score (1.6) Left Femoral Neck: g/cm2 (0.703) / T-score (-1.3) / Z-score (1.2) Right Femur Total: g/cm2 (0.840) / T-score (-0.8) / Z-score (1.4) Right Femoral Neck: g/cm2 (0.684) / T-score (-1.5) / Z-score (1.0) BD/Dexa Bone Density Study IMPRESSION: The patient is considered osteopenic as outlined below according to World Eduin Organization (WHO) criteria with a low fracture risk. Reference Information: The T-score is the number of standard deviations above or below the standard which is normal for young adults at their peak bone mineral density. The World Health Organization (WHO) interprets the T-scores as follows: Above -1 Normal bone density Between -1 and -2.5 Osteopenia Equal to / or below -2.5 Osteoporosis As a practical clinical guideline, osteopenia may be graded as follows: Mild -1 through -1.5 Moderate -1.6 through -2.0 Severe -2.1 through -2.4 The Z-score is the number of standard deviations above or below age-matched controls. A Z-score of less than -1.5 would be considered abnormal. References: 1. NIH Osteoporosis and Related Bone Diseases www osteo.org 2. International Society for Clinical Densitometry www iscd.org 3. National Osteoporosis Foundation www nof.org Electronically Signed: Tyree Valenzuela MD at 12:21 EST ,
== END | disposition home or self-care (01) ==
LOC: OPBD 14:57
PROVIDERS: PCP Family Medicine; Referring Provider Family Medicine; Visit Provider Family Medicine
DX: Z78.0 Asymptomatic menopausal state (principal); R93.7 Abnormal findings on diagnostic imaging of other parts of musculoskeletal system
CPT/HCPCS: 77080

== ENCOUNTER → 2023-05-18 | Outpatient (CLI) | payer MEDICARE, OTHER, SELFPAY ==
--- NOTE | 2023-05-18 09:21 | ECHODONC_ITS ---
Reason For Study: Abn EKG Procedure This was a 2D Doppler, Color Flow transthoracic echocardiogram. Myocardial strain analysis was performed in this exam to aid in the assessment of cardiac function. Exam performed in department. Left Ventricle Normal LV size. Left ventricular systolic function is normal. The estimated ejection fraction is 55 %. No regional wall motion abnormalities noted. Right Ventricle Normal RV size. Normal systolic function. Atria Normal left atrium. Normal right atrium. Mitral Valve Normal mitral valve. Tricuspid Valve Normal tricuspid valve. Mild tricuspid valve insufficiency. Pulmonary artery systolic pressure is 24 mmHg. Aortic Valve Normal aortic valve. Trisinus/trileaflet aortic valve. Pulmonic Valve Normal pulmonic valve. Great Vessels Normal aortic root. The pulmonary artery is normal size. Normal inferior vena cava. Pericardium/Pleural No pericardial effusion. MMode/2D Measurements & Calculations LVIDd: 4.1 cm IVSd: 1.0 cm LVOT diam: 2.0 cm LVIDs: 2.9 cm LVPWd: 1.0 cm LVOT area: 3.1 cm2 RVDd: 3.1 cm FS: 29.6 % Ao root diam: 3.8 cm LAV(MOD-bp): 49.8 ml LVAd ap4: 20.4 cm2 LAV(MOD-bp) Indexed: 29.5 ml/m2 LVLd ap4: 6.0 cm LAV(MOD-sp2): 58.5 ml EDV(MOD-sp4): 59.7 ml LAV(MOD-sp4): 41.7 ml EDV(sp4-el): 59.2 ml LVAs ap4: 13.6 cm2 LVLs ap4: 5.8 cm ESV(MOD-sp4): 27.2 ml ESV(sp4-el): 27.2 ml EF(MOD-sp4): 54.5 % EF(sp4-el): 54.0 % LVAd ap2: 19.7 cm2 SV(MOD-sp4): 32.5 ml SV(MOD-sp2): 22.5 ml LVLd ap2: 6.3 cm EDV(MOD-sp2): 52.6 ml EDV(sp2-el): 52.5 ml LVAs ap2: 14.3 cm2 LVLs ap2: 6.0 cm ESV(MOD-sp2): 30.1 ml ESV(sp2-el): 28.6 ml EF(MOD-sp2): 42.8 % SV(sp4-el): 32.0 ml LA dimension(2D): 3.9 cm LA A4 area: 17.3 cm2 RA A4 area: 13.1 cm2 TAPSE: 1.6 cm Doppler Measurements & Calculations MV E max patti: 111.6 cm/sec Ao V2 max: 151.0 cm/sec AI max patti: 428.4 cm/sec Ao max P.1 mmHg AI max P.4 mmHg Ao V2 mean: 105.8 cm/sec Ao mean P.1 mmHg AI dec slope: 305.7 cm/sec2 Ao V2 VTI: 26.0 cm AI P1/2t: 410.4 msec AV (velocity ratio): 0.59 BROOKS(I,D): 1.8 cm2 BROOKS(V,D): 2.0 cm2 LV V1 max: 98.2 cm/sec SV(LVOT): 47.5 ml PA V2 max: 96.7 cm/sec LV V1 max P.9 mmHg PA V2 mean: 70.8 cm/sec LV V1 mean P.3 mmHg LV V1 mean: 71.8 cm/sec LV V1 VTI: 15.4 cm TR max patti: 231.8 cm/sec TR max P.5 mmHg ECHO/ONC Echo Complete Interpretation Summary Normal LV size. Left ventricular systolic function is normal. The estimated ejection fraction is 55 %. The global longitudinal strain is severely abnormal. The global longitudinal st rain = -10.4% (abnormal). Ordering Physician: Amina Stevens Referring Physician: Anson Bautista MD Performed By: Caprice Forman RDCS
== END | disposition home or self-care (01) ==
LOC: CVS 09:19
PROVIDERS: PCP Family Medicine; Referring Provider Physician Assistant Medical; Visit Provider Physician Assistant Medical
DX: R94.31 Abnormal electrocardiogram [ECG] [EKG] (principal)
CPT/HCPCS: 93306; 93356

== ENCOUNTER 2023-05-20 13:35 | Inpatient (IN) | payer MEDICARE, OTHER, SELFPAY ==
[2023-05-13 08:26] LABS: Hematocrit 39.6 % (37-47); Hemoglobin 12.7 g/dL (12.0-15.0); Mean Corp Hgb Conc 32.1 g/dL (32-36); Mean Corpuscular Volume 93.4 fL (81-99); Mean Platelet Vol. 9.1 fl (6.2-12.0); Platelet Count 286 K/mm3 (150-450); RBC Distribution Width CV 14.1 % (11.6-14.6); RBC Distribution Width SD 48.2 fl (35.1-43.9); Red Blood Count 4.24 M/mm3 (4.2-5.4); White Blood Count 7.2 K/mm3 (4.4-11.0)
[2023-05-13 09:19] LABS: Anion Gap 5 (5-15); BUN 17 mg/dL (7-18); BUN/Creat Ratio 16.3 RATIO (10-20); Calcium,Total 9.2 mg/dL (8.5-10.1); Chloride 110 mmol/L (98-107); Creatinine, Serum 1.04 mg/dL (0.55-1.02); EST Glomerular Filtration Rate 54 mL/min (>60); Est Glom Filt Rate - Afr Amer 65 mL/min (>60); Glucose 86 mg/dL (74-106); Sodium Level 140 mmol/L (136-145)
[2023-05-20] VITALS (15 sets, daily range): BP systolic 117–171; BP diastolic 72–121; PULSE 70–84; RESP 16–18; TEMP 36.6–37.3; O2SAT 92–98; BMI 27.8
--- NOTE | 2023-05-20 | AXNB_PTH ---
PATIENT: TREVER BOOTH LOC: MS3 U#:[id number] AGE/SX: 83/F [place] [facility] [place]: Dr. Tima Oviedo MD : 1940 BED: 1 DIS: 05/21/2023 SPEC #: [id number] RECD: 05/20/23 12:05 STATUS: NICOLAS ANDRES #: [id number] KASH: 05/20/23 00:[address]: Tima Oviedo DEPT: SURGICAL PATHOLOGY RECD BY: Breanna Hensley ENTERED: 05/20/23 14:02 SP TYPE: AX NODE BX OTHR DR: Dr. Anson Bautista MD Tissues: A - Axillary lymph node, NOS B - Axillary lymph node, NOS C - Left breast, NOS Procedures: Frozen Section (charge) Frozen Section Add'l ([facility]) Surgery Specimen Level V HEADER OPERATION: Left sentinel lymph node biopsy, Left breast modified radical mastectomy PRE-OP DIAGNOSIS: Lobular carcinoma of left breast TISSUE SUBMITTED: A - Left breast sentinel lymph node, FS, B - Left axillary node, C - Left breast total mastectomy, suture red axillary aspect FROZEN SECTION DIAGNOSIS A. Left axillary sentinel lymph nodes, biopsy: Two lymph nodes, one larger lymph node, positive for metastatic carcinoma, smaller lymph node suspicious for metastatic carcinoma. :aleja 05/20/2023 MICROSCOPIC DIAGNOSIS A. Left axillary sentinel lymph nodes, biopsy: Two lymph nodes, larger lymph node positive for metastatic carcinoma; Smaller lymph node positive for isolated tumor cells. See comment. B. Left axillary lymph nodes, regional dissection: Three lymph nodes with macrometastasis, one lymph node with micrometastasis and two lymph nodes with isolated tumor cells out of 14 lymph nodes. See comment. C. Left breast, mastectomy: Multifocal invasive lobular carcinoma x5. See cancer summary in the comment section. :aleja 05/26/2023 COMMENT A. More than 95% of the larger lymph is replaced by the metastatic tumor. The larger lymph node measures 3.0 cm in greatest dimension representing the size of metastatic focus. Extranodal extension is noted and measures 0.6 x <0.1 cm. Immunohistochemistry ([id number]) supports the above diagnosis. B. The largest focus of metastasis measures 0.4 x 0.3 cm. Extranodal extension is not seen. Immunohistochemistry ([id number]) supports the above diagnosis. BREAST CANCER SUMMARY (A to C): Procedure - total mastectomy Specimen laterality - left Tumor site - largest focus in the central portion of the breast. Tumor size - largest tumor measures 3.0 x 2.6 x 2.5 cm Histologic type - invasive lobular carcinoma. Histologic grade (Gridley grade): Glandular/tubular differentiation score - 3 Nuclear pleomorphism score - 2 Mitotic count score - 1 Overall grade - grade 2 (score of 6) Tumor focality - multifocal invasive carcinoma. Number of foci - 5 Size of individual foci - largest focus 3.0 x 2.6 x 2.5 cm Smaller foci measure as follows: #2 - 1.2 x 0.7 cm, #3 - 1.0 x 0.5 cm, #4 - 0.9 x 0.6 cm and #5 - 0.2 x 0.2 cm (measured microscopically). Ductal carcinoma in situ - not identified Lobular carcinoma in situ - present Tumor extension: Skin - skin is present and uninvolved. Nipple - ductal carcinoma does not involve nipple epidermis. Skeletal muscle - no skeletal muscle is present. Margins: Invasive carcinoma margin - uninvolved by invasive carcinoma. Tumor is 2.5 cm away from the closest posterior and superior margins. Ductal carcinoma in situ margin - not applicable Regional lymph nodes: Number of lymph nodes examined - 16 Number of sentinel lymph nodes examined - 2 Number of lymph nodes with macrometastases - 4 Number of lymph nodes with micrometastases - 1 Number of lymph nodes with isolated tumor cells - 2 Size of largest metastatic deposit - 3.0 cm Extranodal extension - present Extent of extranodal distention - 0.6 x <0.1 cm Treatment effect - no known presurgical therapy. Lymphvascular invasion - not identified Dermal lymphvascular invasion - not identified Additional Pathologic Findings: - Extensive atypical lobular hyperplasia. - Intraductal hyperplasia with focal atypia. - Intraductal papilloma. - Fibrocystic changes. Ancillary Studies: Previously performed on same tumor ([id number] / [id number]) ER: positive (>95%, strong intensity) WA: positive (>95%, moderate intensity) Tam9wvl: equivocal (1-2+) [id number] by SERVANDO: Negative / not amplified Distant metastasis - not applicable Microcalcifications - not identified Clinical History - Please make reference to previous specimen ([id number]), left breast stereotactic core biopsy with diagnosis of invasive lobular carcinoma. PATHOLOGIC STAGE: pT2(m) pN2a pMx The above summary is in compliance with [employer] (CAP) Cancer Protocols Checklist and [place] Joint Committee on Cancer (AJCC), Staging Manual, 8th Ed. C. Immunohistochemistry ([id number]) supports the diagnosis of multifocal atypical hyperplasia. Case has been reviewed in consultation with Dr. Hou who concurs with the above diagnosis. IDC:AM MICROSCOPIC DESCRIPTION Slides are reviewed. GROSS DESCRIPTION A - Received fresh for frozen section diagnosis labeled with the patient's name is a specimen designated left breast sentinel lymph node. The specimen consists of a piece of adipose tissue containing nodules consistent with lymph nodes measuring 6.0 x 5.0 x 2.0 cm. Two lymph nodes and one possible lymph node is identified. The larger lymph node measures 3.0 cm in greatest dimension. The smaller lymph node measures 0.2 cm in greatest dimension. The lymph nodes and possible lymph node are submitted entirely for frozen section diagnosis in six cassettes as follows: 1 - one bisected possible lymph node, 25??one serially sectioned lymph node, the larger lymph node, 6 - one small lymph node. / SJ:aleja 05/21/2023 B - Received in fixative is one container labeled with the patient's name and designated left axillary lymph node. The specimen consists of a piece of adipose tissue containing multiple nodules consistent with lymph nodes measuring 8.0 x 8.0 x 2.0 cm. The largest nodule consistent with lymph node measures 3.0 cm in greatest dimension. The lymph nodes are submitted in entirety. Milk Drier sections are submitted in seven cassettes as follows: 1 - multiple lymph nodes, 2 - one bisected lymph node, 3 - one bisected lymph node, 4 - one bisected lymph node, 5-7 - one serially sectioned lymph node, largest lymph node. / SJ: 05/20/2023 More sections are submitted as follows: 8 - multiple lymph nodes. / SJ: 05/21/2023 C - Received in fixative is one container labeled with the patient's name and designated left breast total mastectomy. The specimen consists of a mastectomy specimen consisting of breast tissue with overlying skin ellipse. The breast tissue measures 23.0 x 17.0 x 5.0 cm. The overlying skin ellipse measures 16.0 x 10.0 cm. The nipple measures 1.0 cm in greatest dimension. The specimen is inked as follows: posterior - black, superior - blue, inferior - green, medial - red and lateral - orange. More dictation will follow after fixation. / : 05/20/2023 Serial sections of the breast tissue reveal a massey, indurated centrally hemorrhagic mass measuring 3.0 x 2.6 x 2.5 cm. This mass is 2.5 cm away from the closest posterior and superior margins. Sections of the rest of the specimen reveal massey-yellow adipose cut surfaces mixed with massey-white fibrous areas. Milk Drier sections are submitted in 15 cassettes as follows: 1 - nipple, entirely submitted, 2 & 3 - perpendicular margins and skin, 4-8 - tumor, 9 & 10 - provider service representative section adjacent to the tumor, 11-15 - provider service representative sections away from the tumor. Sections are submitted after additional fixation. / : 05/21/2023 TC:0 CPT: 91633 x3, 32037, 57092 x5
--- NOTE | 2023-05-20 | IMM_PTH ---
PATIENT: TREVER BOOTH LOC: MS3 U#:[id number] AGE/SX: 83/F ROOM: [facility] RE05/20/[address]: Dr. Tima Oviedo MD : 1940 BED: 1 DIS: 05/21/2023 SPEC #: [id number] RECD: 05/25/23 16:53 STATUS: NICOLAS REQ #: [id number] KASH: 05/20/23 00:[address]: Tima Oviedo DEPT: IMMUNOHISTOCHEMISTRY RECD BY: Breanna Hensley ENTERED: 05/25/23 16:57 SP TYPE: IMMUNO OTHR DR: Dr. Anson Bautista MD Tissues: A - Axillary lymph node, NOS B - Axillary lymph node, NOS C - Left breast, NOS Procedures: CALPONIN-1 (add) CK7 (add) CK8 (add) E-CAD (add) Pankeratin (initial) Pankeratin (add) P40 (add) PHYSICIAN & [address] [address] SPECIMEN INFORMATION: Tissue Source: A - Left axillary sentinel lymph nodes, B - Left axillary lymph node, C - Left breast Clinical Info: Lobular carcinoma of left breast Specimen Number: [id number] A6, B1, B2, B4-B8, C12, C13, C15 CPT code: 87729 x3, 47530 x28 METHODOLOGY: Deparaffinized sections of prefer/formalin-fixed tissue or PAP/DQ stained slides are incubated with monoclonal/polyclonal antibodies/oligonucleotide probes. Localization is made via biotin free immunoperoxidase method. Appropriate controls are performed and reacted as expected. Results on target cell population are indicated in the following table: RESULTS: ANTIBODY / CLONE RESULT Block A6 AE1-3 (AE1/AE3/PCK26) positive CK7 (OV-TL12/30) positive Block B1 AE1-3 (AE1/AE3/PCK26) positive CK7 (OV-TL12/30) positive Block B2 AE1-3 (AE1/AE3/PCK26) negative CK7 (OV-TL12/30) negative Block B4 AE1-3 (AE1/AE3/PCK26) negative CK7 (OV-TL12/30) negative Block B5 AE1-3 (AE1/AE3/PCK26) negative CK7 (OV-TL12/30) negative Block B6 AE1-3 (AE1/AE3/PCK26) negative CK7 (OV-TL12/30) negative Block B7 AE1-3 (AE1/AE3/PCK26) positive CK7 (OV-TL12/30) positive Block B8 AE1-3 (AE1/AE3/PCK26) positive CK7 (OV-TL12/30) positive Block C12 AE1-3 (AE1/AE3/PCK26) positive E-Cad (ECH-6) negative CK8 ([id number]) positive Calponin-1 (BV137D) negative P40 (BC28) negative Block C13 AE1-3 (AE1/AE3/PCK26) positive E-Cad (ECH-6) negative CK8 ([id number]) positive Calponin-1 (GE400J) negative P40 (BC28) negative Block C15 AE1-3 (AE1/AE3/PCK26) positive E-Cad (ECH-6) negative CK8 (15tbthO73) positive Calponin-1 (HN485C) negative P40 (BC28) negative These tests were developed and their performance characteristics determined by [facility]. They may not have been cleared or approved by the U.S. Food and Drug Administration. The FDA has determined that such clearance or approval is not necessary. The above immunohistochemical/dualISH markers are ordered and reviewed by the Pathologist. INTERPRETATION: A. Left axillary sentinel lymph nodes, biopsy: One lymph node with isolated tumor cells. B. Left axillary lymph nodes, regional dissection: Two lymph nodes with macrometastasis, one lymph node with micrometastasis and two lymph nodes with isolated tumor cells out of 13 lymph nodes. C. Left breast, mastectomy: Four additional foci of invasive lobular carcinoma. This case has been reviewed in consultation with Dr. Hou who concurs with the above diagnosis. SJ:aleja 05/26/2023
--- NOTE | 2023-05-20 08:51 | NM_ITS ---
PROCEDURE: NUCLEAR MEDICINE Injection Grottoes Node - LEFT breast(s). REASON FOR EXAM: Female, 83 years old. Left breast cancer. TECHNIQUE: Grottoes node localization using radionuclide methods of the LEFT breast(s) was performed following subcutaneous administration of 1.2 mCi of of sulfur colloid Tc-99m. COMPARISON STUDIES : NM - None. CR - Not available for review at this time. CT - Not available for review at this time. MR - comparison is made with prior MRI of the breasts dated April 20, 2023. US - Not available for review at this time. FINDINGS: 1.2 mCi of technetium labeled sulfur colloid was injected subcutaneously in the periareolar region in 4 equal aliquots. NM/Lymph Node Injection Only IMPRESSION: 1.2 mCi of technetium labeled sulfur colloid was injected subcutaneously in the periareolar region in 4 equal aliquots for sentinel node imaging. Electronically Signed: Tyree Valenzuela MD at 9:35 EST ,
--- NOTE | 2023-05-20 08:54 | OP.PCM_ITS ---
<Statement entered by Tima Oviedo MD - 05/24/23 16:57> I have personally performed a face to face assessment of the patient and have reviewed the CHICA Note.
--- NOTE | 2023-05-20 08:54 | PCM.HP.BLA ---
History and Physical Date of Admission: 05/20/23 Allergies Sulfa (Sulfonamide Antibiotics) Allergy (Verified 05/06/23 10:17) Rashmorphine Adverse Reaction (Verified 05/06/23 10:17) EgpmqOfkdeog-ENZ-LpR Reductase Inhibitor [Upwlcrx-Lnb-Nzs Reductase Inhibitor] Adverse Reaction (Verified 05/06/23 10:17) Pain in joints Medications lisinopril 10 mg tablet 20 mg PO DAILY 02/29/16 [History Confirmed 05/06/23] orphenadrine citrate 100 mg tablet,extended release 100 mg PO BID PRN Muscle Spasm #14 TABLETS 05/04/17 [Rx Confirmed 05/06/23] metoprolol tartrate 50 mg tablet 50 mg PO BID #180 tabs 06/21/17 [Rx Confirmed 05/06/23] acetaminophen 500 mg tablet (Tylenol Extra Strength) 500 mg PO Q6H PRN 04/13/23 [History Confirmed 05/06/23] ibuprofen 200 mg tablet 400 mg PO Q6H PRN 04/13/23 [History Confirmed 05/06/23] PFSH Medical History Abnormal CT scan, bladder Abnormal ECG Abnormal mammogram of left breast Acute electrocardiogram changes HLD (hyperlipidemia) Murmur, cardiac Palpitations Tachycardia Uncontrolled hypertension Surgical History S/P carpal tunnel release S/P cataract extraction S/P left knee surgery Family History Sister Breast cancerMother Heart disease Social History Smoking Status: Former smoker quit date: 04/13/23 Tobacco: How many years used: 14 alcohol intake: never HPI HPI HPI: 83-year-old female returns to discuss the finding of invasive lobular carcinoma left breast. She has been seen in medical oncology consultation with Dr. Angelo Rod. He pursued abdominal pelvic chest CT imaging. That demonstrated minimal gas in the urinary bladder and some possible mild wall thickness. Unclear whether urinary tract infection could be present. Also some possible gastric wall thickening and diverticulosis. I have reviewed those images and concur particular about the gastric wall thickening. There are a few bubbles of air in the urinary bladder. No evidence of metastatic disease. The patient also on April 20, 2023 had bilateral breast MRI. This demonstrates linear non-mass enhancement of the upper outer quadrant left breast measuring 4.1 x 3.2 x 3.3 cm. Multiple enlarged lymph nodes noted in the left breast. I have reviewed these images. This report is been reviewed by Dr. Angelo Rod as well. Dr Rod saw the patient on May 04, 2023. Reviewed the pathology on stereotactic core biopsy showing invasive lobular carcinoma grade 1, ER greater than 95% and TN greater than 95% with HER2/charissa 1-2+. He makes comment that clinically cannot detect any left axillary adenopathy however on my review the MRI that does appear to be enlarged lymph nodes on the left. He has are clinically staged as stage IIa (cT2 cN0 M0). He also makes note of the gastric wall thickening. The patient presents with her daughter today. My previous notes reflect the following Assistant Merchandise Manager Required: No Is patient in pain?: No Allergies Sulfa (Sulfonamide Antibiotics) Allergy (Verified 04/09/23 15:17) Rashmorphine Adverse Reaction (Verified 04/09/23 15:17) GqijvEcajciz-MWT-AdU Reductase Inhibitor [Ntyplvu-Aca-Fgs Reductase Inhibitor] Adverse Reaction (Verified 04/09/23 15:17) Pain in joints Medications lisinopril 10 mg tablet 20 mg PO DAILY 02/29/16 [History Confirmed 04/09/23] cholecalciferol (vitamin D3) 25 mcg (1,000 unit) tablet (Vitamin D3) 2,000 unit PO DAILY 05/07/16 [History Confirmed 04/09/23] orphenadrine citrate 100 mg tablet,extended release 100 mg PO BID PRN Muscle Spasm #14 TABLETS 05/04/17 [Rx Confirmed 04/09/23] metoprolol tartrate 50 mg tablet 50 mg PO BID #180 tabs 06/21/17 [Rx Confirmed 04/09/23] PFSH Medical History Abnormal ECG Abnormal mammogram of left breast Acute electrocardiogram changes HLD (hyperlipidemia) Murmur, cardiac Palpitations Tachycardia Uncontrolled hypertension Surgical History S/P carpal tunnel release S/P cataract extraction S/P left knee surgery Family History Sister Breast cancerMother Heart disease Social History Smoking Status: Never smoker alcohol intake: never HPI HPI HPI: 82-year-old female returns to discuss stereotactic needle core left breast biopsy results. It is of note that on March 11, 2023 I performed a stereotactic needle core left breast biopsy and evaluation of his streaky density in the slightly outer left breast. The procedure appeared to go well. She did have some bleeding at that time and longer compression was held. Pathology showed care adipose tissue but no ductal epithelium to represent breast tissue was present. I discussed this finding with the patient I recommended a repeat attempt. I felt that due to the streaky artifact that the stereotactic ointment lightly had difficulty setting a target depth. We therefore on March 25, 2023 we repeated the stereotactic needle core left breast biopsy. Final pathology now demonstrates invasive lobular carcinoma nuclear grade 1. The longest length was 1.4 cm. Estrogen receptor was greater than 95% and progesterone receptor greater than 95% with HER2/charissa 1-2+. ANTIBODY / CLONE RESULT Block 2 E-Cad (ECH-6) negative CK8 (80mroqK02) positive Calponin-1 (UE069K) negative CK5-6 (D5 & 1684) negative P40 (BC28) negative P53 (DO-7) negative (null pattern) Ki-67 (30-9) positive, low (~2%) MORPHOMETRIC ANALYSIS ER (clone 6F11) >95%, strong intensity TN (clone 16/1E2) >95%, moderate intensity Her-2Neu (clone CB11) 1-2+ My previous notes reflect the following. Visit Reasons: LEFT BREAST BIRADS 4 Chief Complaint: left breast nodule Assistant Merchandise Manager Required: No Is patient in pain?: No Allergies Sulfa (Sulfonamide Antibiotics) Allergy (Verified 03/08/23 12:11) Rashmorphine Adverse Reaction (Verified 03/08/23 12:11) NvcyjLdohzdy-HZO-RfA Reductase Inhibitor [Rsivvou-Ezy-Epj Reductase Inhibitor] Adverse Reaction (Verified 03/08/23 12:11) Pain in joints Medications lisinopril 10 mg tablet 20 mg PO DAILY 02/29/16 [History Confirmed 03/08/23] cholecalciferol (vitamin D3) 25 mcg (1,000 unit) tablet (Vitamin D3) 2,000 unit PO DAILY 05/07/16 [History Confirmed 03/08/23] orphenadrine citrate 100 mg tablet,extended release 100 mg PO BID PRN Muscle Spasm #14 TABLETS 05/04/17 [Rx Confirmed 03/08/23] metoprolol tartrate 50 mg tablet 50 mg PO BID #180 tabs 06/21/17 [Rx Confirmed 03/08/23] PFSH Medical History (Updated 03/08/23 @ 12:[address] Tima Oviedo MD) Abnormal ECG Abnormal mammogram of left breast Acute electrocardiogram changes HLD (hyperlipidemia) Murmur, cardiac Palpitations Tachycardia Uncontrolled hypertension Surgical History (Updated 03/08/23 @ 12:10 by Steffi Mancuso) S/P carpal tunnel release S/P cataract extraction S/P left knee surgery Family History (Updated 03/08/23 @ 12:11 by Steffi Mancuso) Sister Breast cancerMother Heart disease Social History (Updated 03/08/23 @ 12:11 by Steffi Mancuso) Smoking Status: Never smoker alcohol intake: never HPI HPI HPI: 82-year-old female is being referred by Dr. Anson Bautista for surgical consultation regarding abnormal mammographic and breast ultrasound imaging. A written copy of my surgical consult recommendations will return to him. As noted below on February 16, 2023 the patient had bilateral screening mammography and then on February 17, 2023 she had diagnostic left breast mammogram and ultrasonography. I have personally reviewed these images. On mammogram there is felt to be a focal architectural distortion in the upper outer aspect of the left breast however this area is rather diffuse. Ultrasound suggests that a much smaller 9 x 9 x 4 mm ill-defined area. This is extraordinarily vague and does not seem to correlate well with the diffuse area on mammogram to my review. 82-year-old female. G5, . Menarche at age 14. First child born when she was 18. She did not breast-feed. No history of any previous breast biopsies. She was briefly on estrogen replacement therapy remotely but that was only for approximately 1 year. Family history is notable for a sister who had breast cancer at approximately age 77 or 78 but she had been on chronic OCPs. The patient denies any nipple discharge. She has had chronic lifelong breast tenderness. She herself cannot detect any focal changes in her own self breast exam February 16, 2023 MAMMOGRAPHY - BILATERAL SCREENING REASON FOR EXAM: Female, 82 years old. Routine annual screening examination. PERTINENT HISTORY: Sister with breast cancer. TECHNIQUE: Digital bilateral breast rodriguez (3D mammographic acquisition) in the CC and MLO projections. 2-D mediolateral oblique (MLO) and craniocaudad (CC) views of both breasts were obtained. CAD: Full Field Digital Mammography with Computer Added Detection was performed. COMPARISON: Comparison is made with prior study dated July 25, 2018. FINDINGS: Breast Composition: There are scattered areas of fibroglandular density. Focal area of architectural distortion is seen in the upper deep slightly lateral aspect of the left breast. The patient will be recalled for additional views including compression spot views and 90 degree lateral view. No other significant abnormalities are identified. BI/SCRN MAMM (CAD)W/RODRIGUEZ BILAT IMPRESSION: Focal area of architectural distortion is seen in the upper deep slightly lateral aspect of the left breast as described. The patient will be recalled for additional views including 90 degree lateral and compression spot views. ASSESSMENT CATEGORY: BIRADS Category 0: Incomplete. Need additional imaging evaluation. A letter regarding these results will be sent to the patient by the facility within 30 days. Approximately 10% of breast cancers are not detected by mammography. A normal mammogram should not delay biopsy of a clinically suspicious abnormality. [id number] Electronically Signed: Tyree Valenzuela MD at 8:54 EDT , February 17, 2023 MAMMOGRAPHY - UNILATERAL DIAGNOSTIC: LEFT BREAST REASON FOR EXAM: Female, 82 years old. Abnormal screening mammogram. PERTINENT HISTORY: Sister with breast cancer. TECHNIQUE: Compression spot views of the left breast in the mediolateral oblique and craniocaudad projections as well as 90 degree lateral view were obtained. CAD: Full Field Digital Mammography with Computer Added Detection was performed. COMPARISON: Comparison is made with prior study February 16, 2023. FINDINGS: Breast Composition: There are scattered areas of fibroglandular density. Persistent focal architectural distortion in the upper lateral aspect of the left breast. Correlation with ultrasound is recommended. No other significant abnormalities are identified. BI/DIAG MAMM W/CAD, UNILAT IMPRESSION: Persistent focal architectural distortion in the upper outer aspect of the left breast as described. Correlation with ultrasound is recommended. ASSESSMENT CATEGORY: BIRADS Category 0: Incomplete. Need additional imaging evaluation. A letter regarding these results will be sent to the patient by the facility within 30 days. Approximately 10% of breast cancers are not detected by mammography. A normal mammogram should not delay biopsy of a clinically suspicious abnormality. Electronically Signed: Tyree Valenzuela MD at 10:14 EDT , February 17, 2023 STUDY: ULTRASOUND BREAST - LEFT REASON FOR EXAM: Female, 82 years old. Abnormal mammogram. TECHNIQUE: Axial and longitudinal images of the LEFT breast were performed with a high resolution ultrasound transducer. # OF IMAGES: 39 COMPARISON: Comparison is made with prior mammogram dated February 16, 2023 and February 17, 2023. FINDINGS: LEFT Breast: At the 12:00 position of the breast at 3 cm from nipple, there is a 9 mm x 9 mm x 4 mm ill-defined subtle architectural distortion corresponded to the mammographic findings. Biopsy recommended. US/Breast Limited Unilateral IMPRESSION: Subtle 9 mm x 9 mm x 4 mm ill-defined architectural distortion at the 12:00 position of the breast at 3 cm from the nipple. Biopsy recommended. ASSESSMENT CATEGORY: BIRADS Category 4: Suspicious - Biopsy Should Be Considered. A letter regarding these results will be sent to the patient by the facility within 30 days. Electronically Signed: Tyree Valenzuela MD at 10:43 EDT , ROS General General: Yes fatigue; No weight change, appetite, colon cancer, breast cancer or weakness HEENT HEENT: No difficulty swallowing, eye injury, eye surgery, swollen glands or hoarseness Endo Endocrine: No thyroid disease, diabetes mellitus, thyroid cancer, Hair loss, heat intolerance or cold intolerance Skin Skin: No rash or changing moles Breast Breast: No left breast lump, right breast lump, nipple discharge, breast pain, abnormal mammogram, abnormal US or breast enlargement Musc Musculoskeletal: Yes arthritis; No back problems, rheumatoid arthritis, gout or joint pain Cardio Cardiovascular: Yes high blood pressure; No murmur, pacemaker, heart disease, atrial fibrillation, heart attack, heart stent, palpitations, shortness of breat with exertion or chest pain Psych Psychiatric: Yes anxiety; No depression or hearing voices Resp Respiratory: No shortness of breath, No sleep apnea, No cough, No COPD, No asthma, No emphysema and No wheezing Gastro Gastrointestinal: No abdominal pain, No nausea or vomiting, No diarrhea, Yes constipation, No blood in stool, No acid reflux, No hemorrhoids, No ulcers, No gallbladder problem and No black,tarry stools Vinicio Hematologic: No blood thinners, No blood disorders, No bleeding, No anemia and No blood clots Neuro Neurologic: No system reviewed and no additional complaints, except as documented, No as per HPI, No abnormal gait, No abnormal hearing, No abnormal movements, No abnormal speech, No behavioral changes, No burning sensations, No confusion, No convulsions, No disequilibrium, No dizziness, No localized weakness, No frequent falls, No headache(s), No lack of coordination, No loss of vision, No memory loss, No numbness, No other visual disturbances, No radicular pain, No restless legs, No sensory deficit, No syncope, No tingling, No tremor(s), No weakness and No other Exam Const General: cooperative, healthy appearing, comfortable and no acute distress Nutritional Appearance: average body habitus Orientation: alert, awake and oriented x3 HENMT Head: normal to inspection Eyes General: appearance normal, both eyes and all related structures Neck Neck: normal visual inspection Chest Other: Right breast: No focal mass. No nipple discharge. No axillary or clavicular adenopathy, mild diffuse tenderness to even light palpation Left breast: No focal mass. No nipple discharge. No axillary or clavicular adenopathy, mild diffuse tenderness to light palpation Resp Effort & Inspection: normal respiratory effort Auscultation: clear to auscultation bilaterally Assessment and Plan Assessment and Plan (1) Abnormal mammogram of left breast: Status: Acute Plan: As noted above I do not believe that the streaky area of abnormality on mammogram correlates with the very nondescript at 9 mm area felt to be possibly identified on ultrasound. I believe that the ultrasound finding is quite vague at best. I propose for her stereotactic needle core biopsy left breast upper outer quadrant. I described the technique, benefit, risk, alternatives. She has had an opportunity to ask and have questions answered. We will proceed as noted. I appreciate the opportunity of assisting with her surgical care. Copy: Dr. Anson Oviedo M.D., F.A.C.S. ROS General General: Yes fatigue; No weight change, appetite, colon cancer, breast cancer or weakness HEENT HEENT: No difficulty swallowing, eye injury, eye surgery, swollen glands or hoarseness Endo Endocrine: No thyroid disease, diabetes mellitus, thyroid cancer, Hair loss, heat intolerance or cold intolerance Skin Skin: No rash or changing moles Breast Breast: No left breast lump, right breast lump, nipple discharge, breast pain, abnormal mammogram, abnormal US or breast enlargement Musc Musculoskeletal: Yes arthritis; No back problems, rheumatoid arthritis, gout or joint pain Cardio Cardiovascular: Yes high blood pressure; No murmur, pacemaker, heart disease, atrial fibrillation, heart attack, heart stent, palpitations, shortness of breat with exertion or chest pain Psych Psychiatric: Yes anxiety; No depression or hearing voices Resp Respiratory: No shortness of breath, No sleep apnea, No cough, No COPD, No asthma, No emphysema and No wheezing Gastro Gastrointestinal: No abdominal pain, No nausea or vomiting, No diarrhea, Yes constipation, No blood in stool, No acid reflux, No hemorrhoids, No ulcers, No gallbladder problem and No black,tarry stools Vinicio Hematologic: No blood thinners, No blood disorders, No bleeding, No anemia and No blood clots Neuro Neurologic: No system reviewed and no additional complaints, except as documented, No as per HPI, No abnormal gait, No abnormal hearing, No abnormal movements, No abnormal speech, No behavioral changes, No burning sensations, No confusion, No convulsions, No disequilibrium, No dizziness, No localized weakness, No frequent falls, No headache(s), No lack of coordination, No loss of vision, No memory loss, No numbness, No other visual disturbances, No radicular pain, No restless legs, No sensory deficit, No syncope, No tingling, No tremor(s), No weakness and No other Assessment and Plan Assessment and Plan (1) Lobular carcinoma of left breast: Status: Acute Plan: 82-year-old female with newly diagnosed invasive lobular carcinoma slightly lateral left breast. This was detected an area of this subtle architectural distortion seen on mammogram with a breast ultrasound suggesting at the 12 o'clock position +3 cm left breast a 9 x 9 x 4 mm ill-defined area. On my personal review of the ultrasound I thought that this area highlighted was extraordinarily vague and it was not clear to me that this correlates with the item on mammogram. April 15, 2023 STUDY: CT CHEST, ABDOMEN T PELVIS WITH CONTRAST REASON FOR EXAM: Female, 82 years old. MALIGNANT NEOPLASM OF LEFT BREAST RADIATION DOSAGE (If Supplied By Facility): CTDIvol = ( 15.27 ) mGy, DLP = ( 962.77 ) mGycm TECHNIQUE: Transaxial imaging was performed following intravenous administration of IV 100mL Isovue-370. Individualized dose optimization techniques were used for this CT. COMPARISON: FINDINGS: CHEST The lungs are normal. There is no demonstrated pleural abnormality. Normal heart and pericardium. Normal mediastinum. Normal hilar regions. Normal unenhanced pulmonary arteries. Normal aorta arch and descending thoracic aorta. Normal osseous structures. ABDOMEN Normal liver. Normal gallbladder and extrahepatic biliary system. Normal spleen. Normal pancreas. Normal bilateral adrenal glands. Normal right kidney. Normal left kidney. Possible wall thickening at the distal portion of the stomach. Small hiatal hernia. Normal small intestine. Diverticulosis of the colon. The appendix is not visualized. Calcified abdominal aorta. Normal inferior vena cava. Normal retroperitoneum. Normal abdominal wall. Degenerative vertebral changes. PELVIS Minimal gas in the urinary bladder with mild wall thickening. There is no pelvic fluid. There is no pelvic lymphadenopathy or mass lesion. Normal visualized pelvic arteries. CT/CT Chest, Abd, Pel w/Contrast IMPRESSION: Minimal gas in the urinary bladder with mild wall thickening. Infectious etiology cannot be excluded. Possible distal gastric wall thickening. Diverticulosis. Electronically Signed: Elias Diop DO at 18:44 EST Reading Location ID and State: [address] [place] [address] Tel [phone], Service support , April 20, 2023 STUDY: BILATERAL BREAST MR WITHOUT AND WITH CONTRAST REASON FOR EXAM: Female, 82 years old. Left breast cancer. TECHNIQUE: Multi-sequence multi-echo imaging of both breasts was performed with a dedicated breast coil. T1-weighted and T2-weighted images were performed before the administration of contrast. T1-weighted images were also performed after the intravenous administration of 14ml of Clariscan contrast. COMPARISON: Stereotactic biopsy images dated March 25, 2023 and March 11, 2023, left breast ultrasound dated February 17, 2023, left diagnostic mammogram dated February 17, 2023, screening mammogram dated February 16, 2023 and screening mammogram dated July 25, 2018. FINDINGS: RIGHT BREAST: Scattered fibroglandular density with minimal background enhancement. No abnormal enhancing masses or areas of non-mass enhancement in the right breast. Normal left axillary lymph nodes. LEFT BREAST: Scattered fibroglandular density with minimal background enhancement. In the upper outer quadrant of the left breast corresponding to the mammographic and ultrasonographic abnormalities there is an area of clumped linear non-mass enhancement measuring 4.1 cm x 3.2 cm x 3.3 cm. Multiple enlarged lymph nodes in the left breast. No abnormality in the visualized regions of the chest or liver. MRI/Breast Bilateral W/O and W IMPRESSION: Comment linear non-mass enhancement in the upper outer quadrant of the left breast measuring 4.1 cm x 3.2 cm x 3.3 cm. Multiple enlarged lymph nodes in the left breast. CATEGORY: BIRADS Category 6: Known Biopsy-Proven Malignancy - Appropriate Action Should Be Taken. A letter regarding these results will be sent to the patient by the facility within 30 days. Electronically Signed: Baljit Giles MD at 16:04 EST , ROS General General: No weight change, appetite, fatigue, colon cancer, breast cancer or weakness HEENT HEENT: No difficulty swallowing, eye injury, eye surgery, swollen glands or hoarseness Endo Endocrine: No thyroid disease, diabetes mellitus, thyroid cancer, Hair loss, heat intolerance or cold intolerance Skin Skin: No rash or changing moles Breast Breast: No left breast lump, right breast lump, nipple discharge, breast pain, abnormal mammogram, abnormal US or breast enlargement Musc Musculoskeletal: No back problems, arthritis, rheumatoid arthritis, gout or joint pain Cardio Cardiovascular: No murmur, pacemaker, heart disease, atrial fibrillation, high blood pressure, heart attack, heart stent, palpitations, shortness of breat with exertion or chest pain Psych Psychiatric: No depression, anxiety or hearing voices Resp Respiratory: No shortness of breath, No sleep apnea, No cough, No COPD, No asthma, No emphysema and No wheezing Gastro Gastrointestinal: No abdominal pain, No nausea or vomiting, No diarrhea, No constipation, No blood in stool, No acid reflux, No hemorrhoids, No ulcers, No gallbladder problem and No black,tarry stools Vinicio Hematologic: No blood thinners, No blood disorders, No bleeding, No anemia and No blood clots Neuro Neurologic: No system reviewed and no additional complaints, except as documented, No as per HPI, No abnormal gait, No abnormal hearing, No abnormal movements, No abnormal speech, No behavioral changes, No burning sensations, No confusion, No convulsions, No disequilibrium, No dizziness, No localized weakness, No frequent falls, No headache(s), No lack of coordination, No loss of vision, No memory loss, No numbness, No other visual disturbances, No radicular pain, No restless legs, No sensory deficit, No syncope, No tingling, No tremor(s), No weakness and No other Assessment and Plan Assessment and Plan (1) Lobular carcinoma of left breast: Status: Acute Comment: L breast lobular carcinoma, tumor size 4cm, clinically no axillary lymph nodes. Stage IIA(cT2 cN0 M0). Discussed Primary breast cancer, BCS followed by +/-RT, Mastectomy, adjuvant hormonal therapy. Pathology after surgery may price changer. Pt wants to proceed with surgical management. Plan: This was a 45-minute [id number] consultative appointment with additional preoperative review of all studies imaging taking total of 60 minutes I explained to the patient the finding of CT scans demonstrating thickening of the gastric wall. She does not have symptoms but I am recommending a esophagogastroduodenoscopy with biopsy if indicated. We have discussed technique benefit risk complication alternatives. She has had an opportunity to me to ask and have questions answered. We will try to expedite this management. Because of the small bubble of air in the urinary bladder I recommend to her urinalysis culture and sensitivity. Regarding the left breast she has this diffuse area with that is irregular and not forming distinct mass. I have told her I do not believe that the preoperative ultrasound findings and mammogram findings are the same area. I previously discounted the ultrasound findings as being extraordinarily vague. She may however have multifocal disease of lobular carcinoma in the left breast. I do not believe that she is a candidate for a left breast lumpectomy due to the extent of the suspected disease process and potential for multifocality. I also shared with her that I have some concerns regarding the adenopathy in the left axilla that is demonstrated on MRI. I have discussed with her a left total mastectomy with left actually blue dye and nuclear tracer sentinel lymph node biopsy with possible need to convert to a left axillary lymph node dissection. She is aware of technique, benefit, risk, alternatives. We additionally discussed reconstruction either no reconstruction or immediate reconstruction or delayed reconstruction. I discussed that we have a local plastic surgeon that would be able to assist with the reconstruction by inserting an implant. She would need to be seen in consultation. It is of note that a soft tissue transfer reconstruction would not be available locally but that we could transfer her to a tertiary center for all of her breast care management. She has had extensive opportunity to ask the technique benefit risk complications of this varied approach. At this point she is willing to proceed with the urinalysis check in the EGD and she is allowing us to schedule her for a left mastectomy with blue dye nuclear tracer sentinel lymph node biopsy with conversion to left axillary lymph node dissection if indicated. We will try to schedule and expedite her care. She will notify us if after additional discussion with her daughter her desires change. Copy: Dr. Anson Bautista and Dr. Angelo Oviedo M.D., F.A.C.S The patient did have an upper endoscopy. There is no acute concerning pathology identified. She presents now for planned definitive left breast surgery. Plan nuclear tracer blue dye left axillary sentinel lymph node biopsy with subsequent left total mastectomy. Conversion to left axillary lymph node dissection will be performed if indicated. She is aware of the technique, benefit, risk, alternatives. We will proceed as noted. Tima Oviedo M.D., F.A.C.S.
--- NOTE | 2023-05-20 09:36 | DCINST_ITS ---
Discharge Instructions Procedure Breast Surgery Diet Discharge Diet: No restrictions Activity Discharge Activity: May Not Drive (for 2-3 days or while taking narcotic pain meds.) May shower in (days): 1 Lifting Restrictions: 10 pounds for 1 week. Additional Activity Instructions:: Please change the left chest dressing daily. You may utilize a Q-tip and some peroxide to cleanse around the drain sites. Cover them with gauze and tape with tape securing the drains. Reapply the bias ply wrap dressing. Please keep the left chest incision and drain sites clean and dry until after the drains are removed. Empty, measure, record each drain output on a ledger and bring that to your office appointment so we can review the amount of drainage that you are having. Follow Up Care Please Follow Up With: Tima Oviedo MD When: Please call [phone] for follow-up office appointment. Please schedule the appointment for Wednesday, May 24, 2023. Test Results: Test results from this visit will be discussed in further detail at your follow- up appointment, if applicable. Discharge Plan Admission Admit Date/Time: 05/20/23 13:35 Attending Provider: Tima Oviedo Primary Care Provider: Anson Bautista Discharge Orders/Prescriptions Prescriptions: No Action lisinopril 10 MG tablet 20 mg PO DAILY Patient Comments: BLOOD PRESSURE metoprolol tartrate 50 MG tablet 50 mg PO BID Qty: 180 3RF Other Ambulatory Orders: 12 Lead EKG (Routine) Timeframe: 20230513 Location: None Selected Ordered By: Dr. Tima Oviedo Referrals / Follow Up: Anson Bautista MD [Primary Care Provider] -
[2023-05-20] MEDS: Lactated Ringers 1,000 ML 15 ML IV (09:45)
[2023-05-20] MEDS: Cefazolin 2 GM in 0.9% Normal Saline (100mL Bag) 100 ML IV (11:06)
[2023-05-20] MEDS: Isosulfan Blue 1% 5 ML Vial (11:24)
--- NOTE | 2023-05-20 13:29 | OP.PCM_ITS ---
Report of Operation Date of Procedure: 05/20/23 Pre-Operative Diagnosis: Lobular carcinoma upper outer quadrant left breast Post-Operative Diagnosis: Laboratory seroma upper outer quadrant left breast with axillary lymph node metastasis Surgery/Procedure Performed:: Left breast blue dye Lymphazurin injection with left axillary blue dye and nuclear tracer sentinel lymph node biopsy. Left modified radical mastectomy. Description of Surgical Findings:: Timeout informed consent was obtained. 83-year-old female was taken to the operating placed on the table underwent general anesthesia. The left arm was carefully wrapped with soft roll placed at right angles to the table. She had already had nuclear tracer injection. 2 cc of isosulfan blue dye was injected retroareolar massage was performed for 3 minutes. The left breast and axilla sterilely prepped and draped. A transverse elliptical excision so as to incorporate the previous upper outer left breast stereotactic core biopsy site was performed. 6 superior flaps were created. Upon so doing the lymphatic blue dye tracking was notable to a palpable left axillary lymph node. This was dissected free. Neoprobe was used and it was noted that this lymph node was quite hot. Neoprobe did not appear to be working correctly those large number of signal return occurred throughout the procedure almost at all areas. However by palpation there was suggestion of additional nodes deeper in the axilla. Frozen section returned that 1 and likely 2 suspicious lymph nodes were positive for macro metastatic disease. By that time I had completed the inferior flap with sharp and blunt dissection electrocautery dissection as I had the superior flap. Therefore I converted the procedure to a modified radical mastectomy. The breast was dissected off the pectoralis major with electrocautery that specimen was submitted and the axillary tail was secured with a 2-0 silk suture marker. A level 1 to left axillary lymph node dissection was performed using sharp and blunt dissection. Axillary vein subscapularis latissimus dorsi and subscapularis were used as margins. Tissue was swept inferiorly hemostasis attained with hemoclips. The long thoracic nerve of [place] thoracodorsal nerve was preserved. The intercostal brachial cutaneous nerve to the upper arm preserved. Upon submitting that specimen in formalin then the left chest wall and breast were irrigated with sterile water. 2 stab incisions made inferior and laterally and 215 round drains were exited secured to the skin with 3-0 nylon. The lateral drain was shortened to length. The wounds were then closed meticulous with the multiple interrupted 3-0 Vicryl sutures. Were possible the flaps were pleated to the chest wall with the same Vicryl. The chest wall and axillary area was treated with a coating of hemoblast. Having completed the repair Steri-Strips Telfa bulky dry dressings and bias ply wrap was applied. The drains were placed to close suction. Specimen left mastectomy left axillary sentinel lymph nodes and left axillary lymph node dissection. Drains ALEJANDRA drains x 2. Blood loss 100 cc. She was taken to the recovery room in satisfied condition without apparent complication Synoptic Portion: Element Response Options Operation performed with curative intent. Yes Resection was performed within the boundaries of the axillary vein, chest wall (serratus anterior), and latissimus dorsi. Yes Nerves identified and preserved during dissection (select all that apply) long thoracic nerve of [place] and thoracodorsal nerve and intercostal percutaneous nerve to the upper arm Level III nodes were removed. No Synoptic Portion: Element Response Options Operation performed with curative intent. Yes Tracer(s) used to identify sentinel nodes in the upfront surgery (non- neoadjuvant) setting (select all that apply). Isosulfan blue dye and radioactive tracer Tracer(s) used to identify sentinel nodes in the neoadjuvant setting (select all that apply). Not applicable All nodes (colored or non-colored) present at the end of a dye-filled lymphatic channel were removed. Yes All significantly radioactive nodes were removed. Yes All palpably suspicious nodes were removed. Yes Biopsy-proven positive nodes marked with clips prior to chemotherapy were identified and removed. Not applicable Surgeon: Tima Oviedo Type of Anesthesia: General and Local Anesthesiologist: Anson Powers
[2023-05-20] MEDS: Bupivacaine 0.25% 30 ML Vial (13:34)
[2023-05-20] MEDS: Metoprolol Tartrate 50 MG Tablet PO (21:40)
[2023-05-21 02:08] VITALS: BP 125/92; PULSE 70; RESP 16; TEMP 36.5; O2SAT 95
--- NOTE | 2023-05-21 06:04 | PN.SURG_ITS ---
Subjective Subjective Patient has no specific complaints today. She feels she is doing well. She has discomfort but denies severe pain. Objective Data Objective Data Vital Signs: Vital Signs Temp Pulse Resp BP Pulse Ox O2 Del Method O2 Flow Rate 97.7 F L 70 16 125/92 H 95 Room Air 2 05/21/23 02:08 05/21/23 02:08 05/21/23 02:08 05/21/23 02:08 05/21/23 02:08 05/21/23 02:08 05/20/23 17:10 Oxygen Flow Rate (L/min) 2 Oxygen Delivery Method Room Air Weight: 147 lb 11.355 oz Body Mass Index (BMI) 27.8 Intake & Output: Intake and Output for Last 24 Hours 05/19/23 05/20/23 05/21/23 23:59 23:59 23:59 Intake Total 2267.75 / 2667.75 400 / 400 Output Total 520 / 570 50 / 50 Balance 1747.75 / 2097.75 350 / 350 Lab / Micro Data 05/13/23 07:41 05/13/23 07:41 Radiography Diagnostic Testing: Radiology Impression [place] Node 05/20/23 08:51 IMPRESSION: 1.2 mCi of technetium labeled sulfur colloid was injected subcutaneously in the periareolar region in 4 equal aliquots for sentinel node imaging. Electronically Signed: Tyree Valenzuela MD at 9:35 EST , Physical Exam Narrative Alert no acute distress Const Constitutional Narrative: Left mastectomy site appears to be clean and dry. The flaps appear viable. ALEJANDRA drainage is already turned serosanguineous. Assessment & Plan Assessment/Plan (1) Lobular carcinoma of left breast: PLAN: I did discuss with the patient the finding of the positive sentinel nodes and the conversion to the axillary lymph node dissection. Otherwise her postoperative course appears to be going very smoothly. Plan for dressing change today for her and then discharge. I have recommended office follow-up on Wednesday, May 24, 2023. Tima Oviedo M.D., F.A.C.S.
[2023-05-21 06:05] VITALS: BP 143/78; PULSE 71; RESP 16; TEMP 36.9; O2SAT 97
--- NOTE | 2023-05-21 09:45 | CASEMGMT ---
YOANA HERZOG Assessment: Face to Face with pt for initial transition planning/care coordination assessment. RN ROSENDA introduced self and role at [facility], pt voices understanding and consents to assessment. Pt is A&O x4 and answers all questions appropriately at this time. Pt sitting up in bed with son, dtr in law and friend Sonia at bedside. Pt agreeable to assessment with visitors at bedside. Care providers, pharmacy, and demographics verified/updated. Admitting Dx: left mastectomy PCP:Michele Specialists: [facility] OR; ruiz Rod Preferred Pharmacy: [facility] Insurance: [employer] Prescription Benefit: yes LNOK: Bony Grossman, son; Bruce Berumen, son Living Arrangements: Pt lives alone in a two story home with no steps to enter. Pt reports she is I in ADL's and denies concerns at home. Pt friend Sonia will be managing and caring for pt drains at home. Wound nurse taught her and she feels comfortable with this per her report. She is a nurse. Pt denies need for any HHC. Transportation: Pt drives self and denies concerns with transportation. Family will transport pt to medical appts. DME:[facility] HHC/SNF: Denies hx of Pt states no concerns with going home at time of dc. Pt feels comfortable with plan of Sonia caring for her. Pt states no further concerns/needs. CM to follow. Advised pt to ask CM if any further question/concerns/needs arise, voices understanding. Pt Goal: Home Plan: Home with friend and family support
--- NOTE | 2023-05-21 09:46 | WOUNDNOTE ---
Was asked by nursing to change dressing to the left chest and teach patient and family the drain care prior to discharge home. patient is POD#[address] Oviedo. Pt is having a friend assist her at home with care. friend present in room. removed the soft wrap and dressing. there was a moderate amount of old dry drainage noted. incision is well approximated with steri strips in place. some mild ecchymosis noted. there are [address] cleansed the ALEJANDRA insertion sites with peroxide and placed a split gauze followed by another gauze pad and secured the dressings with paper tape making sure the entire dressing was covered and the drains were secured. placed an ABD pad across the incision line and reapplied the soft wrap. educated patient and friend how to empty and record the drainage from the ALEJANDRA drains. reviewed teaching booklet. both very appreciative of care. will send supplies with patient for dressing changes and cups to measure the drainage. Pt has a follow up appt scheduled with Dr Oviedo on Wednesday, May 24. no further needs or concerns voiced at this time. YOANA Richards aware teaching is complete.
[2023-05-21 10:09] VITALS: BP 133/71; PULSE 73; RESP 18; TEMP 36.8; O2SAT 99
== END 2023-05-21 10:13 | disposition home or self-care (01) | DRG 582 ==
LOC: SDC 16:33 → MS3 16:33
PROVIDERS: Admitting Provider Surgery; PCP Family Medicine; Referring Provider Surgery; Visit Provider Surgery
PROC: 07T60ZZ Resection of Left Axillary Lymphatic, Open Approach (ICD-10-PCS; CPT 19307; principal; 2023-05-20 11:45)
DX: C50.412 Malignant neoplasm of upper-outer quadrant of left female breast (principal); C77.3 Secondary and unspecified malignant neoplasm of axilla and upper limb lymph nodes; I10 Essential (primary) hypertension; Z17.0 Estrogen receptor positive status [ER+]; R94.31 Abnormal electrocardiogram [ECG] [EKG]; Z79.899 Other long term (current) drug therapy; Z87.891 Personal history of nicotine dependence; Z80.3 Family history of malignant neoplasm of breast
CPT/HCPCS: 36415; 38792; 80048; 85027; 88305; 88307; 88331; 88332; 88341; 88342; 93005; 93306; 93356; 94668; A4648; A9541; J7120; J2405; Q9968

== ENCOUNTER → 2023-06-15 | Outpatient (CLI) | payer MEDICARE, OTHER, SELFPAY ==
--- NOTE | 2023-06-15 07:35 | NM_ITS ---
CLINICAL: 83-year-old female with history of primary breast carcinoma. WHOLE BODY 99m Tc MDP RADIONUCLIDE BONE SCINTIGRAPHY COMPARISON: None available FINDINGS: Following the intravenous administration of 28.0 mCi of 99m Tc MDP, whole body bone images reveal: 1. Facilitated uptake is noted in the acromioclavicular compartments of both shoulders, the bilateral wrists, the patellofemoral compartments of both knees, the medial compartment of the right knee, the ninth and 10th thoracic vertebra posteriorly on the right, lower cervical spine posteriorly in the midline. 2. The remaining skeletal structures are scintigraphically unremarkable with normal-appearing renal images and urinary bladder activity identified. A presumably asymptomatic left knee arthroplasty demonstrates mild increased uptake noted in the medial lateral tibial components most consistent with normal postsurgical change. NM/Bone Scan Whole Body IMPRESSION: 1. The increase in radiotracer concentration defined in the shoulders and wrists bilaterally, the patellofemoral compartments of both knees (in the absence of patellar hardware placement involving the left knee), the medial compartment of the right knee, the thoracic and lumbar spine is commensurate with degenerative arthritis. 2. There is no definitive scintigraphic evidence of diffuse axial skeletal metastatic disease. Electronically Signed: Jose Mckeon DO at 8:52 EST ,
--- OUTSIDE RECORDS SUMMARY | 2023-06-15 07:46 | XMS RPT_ITS | CCD ---
Author Name Unknown Address [address] [place] [address] Organization [facility] Care Team Providers Care [employer] Name Role Phone Dorinda Aranda Unavailable Unavailable Dorinda Aranda Unavailable Unavailable Allergies Allergy Classification Reported Allergen(s) Allergy Type Date of Onset Reaction(s) Facility (2 sources) Hmg-Coa Reductase Inhibitors (Statins) drug allergy 06-19-2016 myalgias, stiffness [facility] Work Phone: [phone] (2 sources) Morphine Drug Allergy 06-05-2016 Other [facility] Work Phone: [phone] (2 sources) Sulfonamides (Antibiotic) drug allergy 06-05-2016 Rash [facility] Work Phone: Medications Completed/Discontinued Medications Medication Drug Class(es) Dates Sig (Normalized) Sig (Original) aspirin 325 mg oral tablet (6 sources) Platelet Aggregation Inhibitor, Nonsteroidal Anti-inflammatory Drug Start: 05-20-2016 take 1 tablet by mouth once daily ASPIRIN 325 MG TABS One tablet by mouth daily ASPIRIN [id number] Amina Carballo RN Problems Active Problems Problem Classification Problem Date Documented Da te Episodic/Chronic Disorders of lipid metabolism (2 sources) Hyperlipidemia; Translations: [Hyperlipidemia, unspecified] Onset: 06-05-2016 06-05-2016 Chronic Essential hypertension (2 sources) Hypertensive disorder; Translations: [Essential (primary) hypertension] Onset: 06-05-2016 06-05-2016 Chronic Heart valve disorders (4 sources) Nonrheumatic mitral (valve) insufficiency; Translations: [Mitral valve prolapse] Onset: 06-19-2016 06-19-2016 Chronic Past or Other Problems Problem Classification Problem Date Documented Date Episodic/Chronic Cardiac dysrhythmias (4 sources) Tachycardia; Translations: [Palpitations] Onset: 06-05-2016 06-05-2016 Episodic Heart valve disorders (2 sources) Heart murmur; Translations: [Cardiac murmur, unspecified] Onset: 06-05-2016 06-05-2016 Episodic Other nutritional; endocrine; and metabolic disorders (4 sources) Body mass index (BMI) 28.0-28.9, adult; Translations: [Body mass index (BMI) 27.0-27.9, adult] Onset: 06-19-2016 03-08-2017 Episodic Other screening for suspected conditions (not mental disorders or infectious disease) (2 sources) Abnormal electrocardiogram [ECG] [EKG]; Translations: [Abnormal electrocardiogram [ECG] [EKG]] Onset: 06-05-2016 06-05-2016 Episodic Results Test Name Value Interpretation Reference Range Facil ity Vital Signs Date Time Vital Sign Value Performing Clinician Augustine bang 03-08-2017 10:59-0400 BMI (Body Mass Index) 28.15 kg/m2 [facility]inda [facility] Work Phone: 03-08-2017 10:59-0400 BP Diastolic 88 mm[Hg] [facility] Work Phone: 03-08-2017 10:59-0400 BP Systolic 140 mm[Hg] [facility] Work Phone: 03-08-2017 10:59-0400 Height 154.94 cm Dorinda Banuelos [facility] Work Phone: 03-08-2017 10:59-0400 Pulse (Heart Rate) 80 /min Dorinda Banuelos [facility] Work Phone: 03-08-2017 10:59-0400 Respiratory Rate 20 /min Dorinda Banuel[facility] Work Phone: 03-08-2017 10:59-0400 Weight 67.59 kg Dorindarico Banuelos [facility] Work Phone: 06-19-2016 10:29-0500 Heart rate 69 /min Dorinda Banuelos [facility] Work Phone: 06-19-2016 10:04-0500 BSA (Body Surface Area) 1.65 m2 Dorinda Banuelos [facility] Work Phone: Procedures Date Procedure Procedure Detail Performing Clinician Start: 03-08-2017 End: 03-08-2017 Follow Up Appt Other Amina waters PA-C Work Phone: Start: 06-19-2016 End: 06-19-2016 Ecg routine ecg w/least 12 lds w/i&r Ganesh Wilder MD Start: 06-19-2016 End: 06-19-2016 Follow Up Appt 6 months Ganesh Wilder MD Start: 06-19-2016 End: 06-19-2016 PFM Ganesh Wilder MD Start: 06-19-2016 End: 06-19-2016 Dietary management education, guidance, and counseling Dorinda Aranda Plan of Treatment Date Care Activity Detail Author Start: 03-08-2017 End: 03-08-2017 Follow Up Appt Other Follow Up Appt Other [facility] Work Phone: Start: 03-08-2017 End: 03-08-2017 Appointment Appointment [facility] Work Phone: Start: 06-19-2016 End: 06-19-2016 Ecg routine ecg w/least 12 lds w/i&r EKG (In office) [facility] Work Phone: Start: 06-19-2016 End: 06-19-2016 Follow Up Appt 6 months Follow Up Appt 6 months [facility] Work Phone: Start: 06-19-2016 End: 06-19-2016 PFM PFM [facility] Work Phone: Additional Source Comments FOR RECORDS PERTAINING TO PATIENTS WHO ARE OR HAVE BEEN ENROLLED IN A CHEMICAL DEPENDENCY/SUBSTANCEABUSE PROGRAM, SOME INFORMATION MAY BE OMITTED. This clinical summary was aggregated from multiple sources. Caution should be exercised in using it in the provision of clinical care. This summary normalizes information from multiple sources, and as a consequence, information in this document may materially change the coding, format and clinical context of patient data. In addition, data may be omitted in some cases. CLINICAL DECISIONS SHOULD BE BASED ON THE PRIMARY CLINICAL RECORDS. [facility], [facility]. provides no warranty or guarantee of the accuracy or completeness of information in this document.
== END | disposition home or self-care (01) ==
LOC: NM 07:32
PROVIDERS: PCP Family Medicine; Referring Provider Internal Medicine Medical Oncology; Visit Provider Internal Medicine Medical Oncology
DX: C50.912 Malignant neoplasm of unspecified site of left female breast (principal)
CPT/HCPCS: 78306; A9503

== ENCOUNTER → 2023-06-16 | Outpatient (CLI) | payer MEDICARE, OTHER, SELFPAY ==
--- OUTSIDE RECORDS SUMMARY | 2023-06-16 15:27 | XMS RPT_ITS | CCD ---
Author Name Unknown Address [address] [place] [address] Organization [facility] Care Team Providers Care [employer] Name Role Phone Dorinda Aranda Unavailable Unavailable Dorinda Aranda Unavailable Unavailable Allergies Allergy Classification Reported Allergen(s) Allergy Type Date of Onset Reaction(s) Facility (2 sources) Hmg-Coa Reductase Inhibitors (Statins) drug allergy 06-19-2016 myalgias, stiffness [facility] Work Phone: [phone] (2 sources) Morphine Drug Allergy 06-05-2016 Other [facility] Work Phone: [phone] (2 sources) Sulfonamides (Antibiotic) drug allergy 06-05-2016 Rash [facility] Work Phone: Medications Completed/Discontinued Medications Medication Drug Class(es) Dates Sig (Normalized) Sig (Original) aspirin 325 mg oral tablet (6 sources) Platelet Aggregation Inhibitor, Nonsteroidal Anti-inflammatory Drug Start: 05-20-2016 take 1 tablet by mouth once daily ASPIRIN 325 MG TABS One tablet by mouth daily ASPIRIN [id number] Amina Carballo RN Problems Active Problems Problem [...] 03-08-2017 10:59-0400 Height 154.94 cm Dorinda Banuelos [facility] Work Phone: 03-08-2017 10:59-0400 Pulse (Heart Rate) 80 /min Dorinda Banuelos [facility] Work Phone: 03-08-2017 10:59-0400 Respiratory Rate 20 /min Dorinda Banuel[facility] Work Phone: 03-08-2017 10:59-0400 Weight 67.59 kg Dorindarico Banuelos [facility] Work Phone: 06-19-2016 10:29-0500 Heart rate 69 /min Dorinda Banuelos [facility] Work Phone: 06-19-2016 10:04-0500 BSA (Body Surface Area) 1.65 m2 Dorinda Banuelos [facility] Work Phone: Procedures Date Procedure Procedure [...] Up Appt Other Follow Up Appt Other [facility] Work Phone: Start: 03-08-2017 End: 03-08-2017 Appointment Appointment [facility] Work Phone: Start: 06-19-2016 End: 06-19-2016 Ecg routine ecg w/least 12 lds w/i&r EKG (In office) [facility] Work Phone: Start: 06-19-2016 End: 06-19-2016 Follow Up Appt 6 months Follow Up Appt 6 months [facility] Work Phone: Start: 06-19-2016 End: 06-19-2016 PFM PFM [facility] Work Phone: Additional Source Comments [...] BE BASED ON THE PRIMARY CLINICAL RECORDS. [facility], [facility]. provides no warranty or guarantee of the accuracy or completeness of information in this document.
== END | disposition home or self-care (01) ==
PROVIDERS: PCP Family Medicine; Visit Provider Surgery
DX: Z90.12 Acquired absence of left breast and nipple (principal)
CPT/HCPCS: 87070; 87075; 87205

== ENCOUNTER → 2024-06-20 | Outpatient (CLI) | payer MEDICARE, OTHER, SELFPAY | END | disposition home or self-care (01) | LOC: LABSPEC 13:33 | PROVIDERS: PCP Family Medicine | DX: N39.0 Urinary tract infection, site not specified (principal) ==

== ENCOUNTER → 2025-05-23 | Outpatient (CLI) | payer MEDICARE, OTHER, SELFPAY ==
--- NOTE | 2025-05-23 15:38 | RAD_ITS ---
PROCEDURE: HAND MIN 3 VIEWS 05/23/2025 REASON FOR EXAM: PAIN OVER 4TH MC. R TECHNIQUE: Procedure Code: ADITYA Modality: DX Procedure: HAND MIN 3 VIEWS Right hand three views COMPARISON: None FINDINGS: There is severe osteoarthritis of the 1st carpometacarpal articulation. There is mild osteoarthritis of the interphalangeal joints. No acute fracture or dislocation is identified. Osteopenia is noted. There is no focal soft tissue abnormality or visible radiopaque foreign body. RAD/Hand Min 3 Views IMPRESSION: No acute fracture or dislocation is identified. Reading Location: [facility]
== END | disposition home or self-care (01) ==
LOC: MTRAD 15:37
PROVIDERS: PCP Family Medicine; Referring Provider Family Medicine; Visit Provider Family Medicine
DX: M79.641 Pain in right hand (principal)
CPT/HCPCS: 73130